=== PATIENT | female | born 1970 | race Caucasian/White ===

== ENCOUNTER 2017-11-16 17:14 | Emergency (ER) | payer OTHER ==
[~2017-11-16] VITALS: Ht 162.6 cm; Wt 113.4 kg
[~2017-11-16 17:14] MED LIST: AZO95 MG PO; BENADRYL25 M1 PO; DITROPAN XL5 MG PO; DOK100 MG PO; LEVAQUIN500 MG PO; MELATONIN3 MG PO; MILK OF MA400 MG/5 M PO; NICODERM CQ1 EAC1 TOP; PROZAC20 MG; SENOKOT8.6 MG PO; ULTRAM50 MG PO
[2017-11-16] MEDS ORDERED: IBUPROFEN 600 MG TAB PO STA (17:23)
--- NOTE | 2017-11-16 18:12 | Diagnostic Imaging Report ---
PROCEDURE:X-RAY RIGHT ANKLE, COMPLETE INDICATION:Ankle pain COMPARISON:None. FINDINGS: Normal mineralization. No acute displaced fracture or dislocation. Ankle mortise is preserved. No lytic or blastic lesion. No osteochondral lesion. Mild soft tissue swelling around the ankle. CONCLUSION: Mild soft tissue swelling around the ankle, without underlying bony abnormalities. Emery Maloney M.D. Dictated by: Emery Maloney M.D. on 11/16/2017 at 18:14 Electronically approved by: Emery Maloney M.D. on 11/16/2017 at 18:14
--- NOTE | 2017-11-16 18:13 | Diagnostic Imaging Report ---
PROCEDURE:X-RAY RIGHT FOOT, COMPLETE COMPARISON:None. INDICATIONS:FOOT TWISTED WHEN WALKING FINDINGS: Normal mineralization. No acute, displaced fracture or dislocation. Joint spaces are preserved. No lytic or blastic lesions. Soft tissues are unremarkable. CONCLUSION: No acute abnormalities. Emery Maloney M.D. Dictated by: Emery Maloney M.D. on 11/16/2017 at 18:15 Electronically approved by: Emery Maloney M.D. on 11/16/2017 at 18:15
[2017-11-16 21:20] VITALS: BP 141/81
== END 2017-11-16 21:30 | disposition home or self-care (01) ==
LOC: ER 17:14
DX: S93.431A Sprain of tibiofibular ligament of right ankle, initial encounter (principal); S93.621A Sprain of tarsometatarsal ligament of right foot, initial encounter; S80.212A Abrasion, left knee, initial encounter; W01.0XXA Fall on same level from slipping, tripping and stumbling without subsequent striking against object, initial encounter; Y92.009 Unspecified place in unspecified non-institutional (private) residence as the place of occurrence of the external cause; Z88.0 Allergy status to penicillin; Z87.442 Personal history of urinary calculi
CPT/HCPCS: 99284

== ENCOUNTER 2018-02-07 09:33 | Observation (INO) | payer OTHER ==
[~2018-02-07] VITALS: Ht 162.6 cm; Wt 113.4 kg
[2018-02-07] MEDS ORDERED: SODIUM CHLORIDE 0.9% 1000ML 1,000 ML IV STA (10:03)
[2018-02-07] MEDS ORDERED: DIPHENHYDRAMINE HCL INJ 50 MG/ML VIAL IV ONE (10:15)
[2018-02-07] MEDS ORDERED: METOCLOPRAMIDE HCL 10 MG/2ML VIAL IV ONE (10:15)
[2018-02-07 10:24] LABS: BASOPHILS # (AUTO) 0.1 (0.0-0.1); BASOPHILS % 0.7 % (0.0-1.0); EOSINOPHILS # (AUTO) 0.2 (0.0-0.4); EOSINOPHILS % 2.4 % (0.0-6.0); HEMATOCRIT 39.4 % (34.2-44.1); HEMOGLOBIN 13.5 g/dL (12.0-16.0); LYMPHOCYTES # (AUTO) 2.1 (1.0-3.2); LYMPHOCYTES % 21.8 % (18.0-39.1); MEAN CORPUSCULAR HEMOGLOBIN 32.1 pg (28-32); MEAN CORPUSCULAR HGB CONC 34.3 g/dL (31-35); MEAN CORPUSCULAR VOLUME 93.6 fL (81-99); MONOCYTES # (AUTO) 0.6 (0.2-0.8); MONOCYTES % 6.1 % (4.4-11.3); NEUTROPHILS # (AUTO) 6.5 (2.1-6.9); NEUTROPHILS % 68.8 % (38.7-80.0); PLATELET COUNT 247 x10e3/uL (140-360); RED BLOOD COUNT 4.21 x10e6/uL (3.6-5.1); RED CELL DISTRIBUTION WIDTH 13.2 % (11.7-14.4)
[2018-02-07 10:43] LABS: ALANINE AMINOTRANSFERASE 21 IU/L (0-55); ALBUMIN 3.7 g/dL (3.5-5.0); ALBUMIN/GLOBULIN RATIO 1.2 (0.8-2.0); ALKALINE PHOSPHATASE 89 IU/L (40-150); BLOOD UREA NITROGEN 13 mg/dL (7-26); BUN/CREATININE RATIO 18 (6-25); CALCIUM 8.8 mg/dL (8.4-10.2); CARBON DIOXIDE 22 mmol/L (22-29); CHLORIDE 101 mmol/L (98-107); CREATINE KINASE 140 IU/L (29-168); CREATININE, SERUM 0.72 mg/dL (0.57-1.11); EST GLOMERULAR FILTRATION RATE > 60 ML/MIN (60-); GLUCOSE 110 mg/dL (74-118); SODIUM 134 mmol/L (136-145)
--- NOTE | 2018-02-07 11:00 | Diagnostic Imaging Report ---
EXAMINATION: Head CT without contrast HISTORY: Severe forehead headache since the night before, dizziness COMPARISON: None. TECHNIQUE: Multidetector axial images were obtained without contrast from the foramen magnum to the vertex . The images were reconstructed using brain and bone algorithms. Thin section brain images were reformatted into coronal and sagittal planes. Image quality: Motion/streaking artifact limits the evaluation of the skull base and posterior cranial fossa. Dose modulation, iterative reconstruction, and/or weight based adjustment of the mA/kV was utilized to reduce the radiation dose to as low as reasonably achievable. FINDINGS: Parenchyma: 1. No abnormal densities. 2. No mass or hemorrhage. No CT evidence of acute territorial vascular insult. Extra-axial spaces:No abnormal density. No extra-axial fluid collections Brain volume: Normal for age. Ventricles: No hydrocephalus or displacement. Arteries: No density suggestive of thrombus. Dural sinuses: No abnormal density. Extra-axial spaces: No abnormal density. Foramen magnum: No mass, Chiari malformation, or basilar invagination. Sella: No obvious mass. Paranasal/mastoid sinuses: Imaged portions unremarkable. Skull/Scalp: No lytic or blastic lesions. No fractures. IMPRESSION: Normal head CT. Signed by: Dr. Rosa Lopes M.D. on 02/07/2018 10:57 AM
[2018-02-07] MEDS ORDERED: TRAMADOL HCL 50 MG TAB PO PRN (15:15)
[2018-02-07] MEDS: NICOTINE 21 MG/EA PATCH TOP SCH (15:30)
[2018-02-07] MEDS: ACETAMINOPHEN 325 MG TAB PO PRN (15:30)
[2018-02-07 15:32] LABS: CHOL/HDL RATIO 2.8 (3.0-3.6)
[2018-02-07] MEDS ORDERED: ENOXAPARIN SOD INJ 40 MG/0.4 ML SYR SC SCH (17:00)
[2018-02-07 18:14] LABS: INR 0.96
[2018-02-07 18:15] LABS: PARTIAL THROMBOPLASTIN TIME 32.2 seconds (23.8-35.5)
[2018-02-07] MEDS ORDERED: ALPRAZOLAM 1 MG TAB PO PRN (18:15)
--- NOTE | 2018-02-07 18:15 | Consultation ---
DATE OF CONSULTATION: February 07, 2018 NEUROLOGY CONSULTATION HISTORY OF PRESENT ILLNESS: Ms. Buenrostro is a 48-year-old right hand dominant woman with past medical history significant for hyperlipidemia, prior history of migraines, and tobacco use, admitted to [facility] on February 07, 2018, with symptoms suspicious for a transient ischemic attack or stroke. The patient awoke on the morning of admission with a severe headache. The pain was located across the forehead and did not radiate. Ms. Buenrostro describes the pain as squeezing and rates it a 10 out of 10. Associated with the headache were photophobia and a poor appetite. Despite having a severe headache, the patient arose from bed to prepare her morning cup of coffee. As she drank the coffee, the headache improved but did not resolve. Approximately 1 hour later, the patient began to experience dizziness which she describes as "everything moving in slow motion" with turning the head in either direction. At the same time, the patient noted impairment of balance, difficulty walking, and cognitive impairment. Ms. Buenrostro reports the headache was still present with the aforementioned symptoms but was less severe compared to the headache with which she awoke. Ms. Buenrostro does not report a visual field cut or other disturbance, hemiparesis, or hemihypesthesia associated with the above symptoms. She does report dysarthria with possible expressive aphasia. Concerned regarding her multiple symptoms, the patient proceeded to the emergency center at [facility] for further evaluation. Upon arrival in the emergency center, the patient was afebrile with a blood pressure of 127/72 mmHg and a pulse of 77 beats per minute. Her neurological examination was documented as being nonfocal. While in the emergency center, a CT of the brain without contrast was performed. This study did not show evidence of recent large territorial ischemia, hemorrhage, mass, or mass effect. Ms. Buenrostro received metoclopramide 10 mg intravenously once and diphenhydramine 25 mg intravenously once along with a liter of normal saline. Ms. Buenrostro reports her headache as well as the other symptoms seemed to significantly improve/resolve following administration of these medications. Ms. Buenrostro was then admitted to [facility] for further evaluation and treatment. REVIEW OF SYSTEMS: Dysarthria, possible aphasia, impairment of balance and gait, headache, photophobia, poor appetite, anxiety, and dizziness. Otherwise the 12 point review of systems is negative. PAST MEDICAL HISTORY: Hyperlipidemia, nephrolithiasis, anxiety disorder, history of migraines, anemia. PAST SURGICAL HISTORY: Ureteral stent placement and subsequent removal, lithotripsy, gastric sleeve, section times 2, uterine ablation, tonsillectomy. PAST HOSPITALIZATIONS: Surgeries/procedures as listed. FAMILY MEDICAL HISTORY: The patient's paternal and maternal grandparents are . Their medical histories are unknown. The patient's father is alive. He has hypertension, hyperlipidemia, coronary artery disease, and congestive heart failure. Ms. Buenrostro's mother is alive. She has hypertension as well as recurrent thyroid cancer--currently in remission/cured. The patient has 1 sister who is alive and healthy. Ms. Buenrostro has a son and a daughter, both of whom are living. Her son had a congenital patent foramen ovale which closed spontaneously at the age of 12 years. Her daughter has hearing loss in the left ear secondary to cholesteatoma. SOCIAL HISTORY: The patient is . She is a college graduate. 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 The patient does report current tobacco use. She has smoked 1 pack of cigarettes per day for the past 30 years. Ms. Buenrostro does not report current or prior alcohol or recreational drug use. HOME MEDICATIONS: Benadryl 25 mg by mouth at bedtime daily, Prozac 40 mg by mouth at bedtime daily, melatonin 10 mg by mouth at bedtime daily, Ditropan 5 mg by mouth three times daily as needed, phenazopyridine 95 mg by mouth daily, tramadol 50 mg by mouth every 4 hours as needed. ALLERGIES: PENICILLIN. NO KNOWN FOOD ALLERGIES. NO KNOWN ALLERGIES TO LATEX. NO KNOWN ALLERGIES TO IODINE OR OTHER CONTRAST MATERIALS. PHYSICAL EXAMINATION: VITAL SIGNS: Height 64 inches, weight 250 pounds, BMI 42.9 kg per meter squared. Blood pressure 143/77 mmHg. Pulse 102 beats per minute. Respiratory rate 20 breaths per minute. Oxygen saturation 98% on room air. GENERAL: The patient is awake and alert, does not appear distressed. HEENT: Normocephalic, atraumatic. Pupils are equal, round, and reactive to light. Moist mucous membranes. NECK: Supple. No appreciable thyromegaly. No appreciable carotid bruits. CARDIOVASCULAR: S1, S2, regular rate and rhythm. No murmurs, rubs, or gallops. RESPIRATORY: Clear to auscultation bilaterally. No wheezes, rhonchi, or rales. EXTREMITIES: The skin is warm and dry. No clubbing, cyanosis, or edema. The posterior tibial and dorsalis pedis pulses are 2+ and symmetric. SKIN: No rashes or lesions. NEUROLOGIC Memory/Attention: The patient is awake and alert, oriented to person, place, time, and situation. Cranial Nerves: Cranial nerve 1--Not tested. Cranial nerve 2, 3, 4, and 6--Pupils are equal and round, react briskly to light (from 6 mm to 4 mm). Extraocular movements intact. No nystagmus. Cranial nerve 5--Sensation to light touch and pinprick is intact in the bilateral V1 through V3 distributions. Strength of the temporalis and masseter muscles is within normal limits. Cranial nerve 7--The face is symmetric as are all facial movements. Strength is within normal limits. Cranial nerve 8--Hearing is intact to finger rub bilaterally. Cranial nerve 9, 10--The soft palate elevates equally and symmetrically. Cranial nerve 11--Normal strength of the bilateral sternocleidomastoid and trapezius muscles. Cranial nerve 12--The tongue protrudes midline and moves symmetrically from side to side. Strength: Bulk is normal. Strength is 5/5 in the bilateral deltoids, biceps, triceps, wrist flexors and extensors, finger flexors and extensors, intrinsic hand muscles, hip flexors, knee flexors and extensors, ankle dorsiflexion and plantarflexion, and intrinsic foot muscles. Tone is normal. DTRs: Deep tendon reflexes are 2+ and symmetric at the triceps, biceps, brachioradialis, patellas, and Achilles. Plantar responses are flexor bilaterally. Sensation: Sensation is intact to light touch and pinprick in both arms and both legs. Cerebellar: Dcdewe-idkw-tenjfn and heel-álvarez movements are intact without dysmetria or other impairment. Gait: Deferred. Speech: Spontaneous speech is normal without appreciable dysarthria or aphasia. Repetition is intact. Involuntary Movements: None. Pronator Drift: None. LABORATORY DATA: A complete metabolic panel is unremarkable. Cardiac enzymes are within normal limits. The qualitative beta HCG is negative. Total cholesterol 179, triglycerides 103, LDL cholesterol 95, HDL cholesterol 63. The CBC with differential and platelets reveals a white blood cell count of 9.50 with a normal differential. The hemoglobin and hematocrit are within normal limits. The platelet count is 247. DIAGNOSTIC STUDIES: CT of the brain without contrast January 24, 2018: On my review, there is no evidence of recent large territorial ischemia, hemorrhage, mass, or mass effect. Cerebral volumes are appropriate for age. ASSESSMENT AND PLAN: Ms. Buenrostro is a 48-year-old right hand dominant woman with past medical history significant for hyperlipidemia, prior migraines, and tobacco use, admitted to [facility] on February 07, 2018, for possible transient ischemic attack or stroke. At present, the patient's neurological examination is nonfocal. Her laboratory data and other diagnostic studies have been reviewed and are documented above. In my opinion, it is far more likely the patient experienced a migraine with ora rather than a transient ischemic attack or stroke. Ms. Buenrostro will undergo an MRI of the brain without contrast to exclude the diagnosis of stroke. It is possible there may be findings on the MRI of the brain without contrast to suggest a history of migraines. At present, the patient does not report a headache, photophobia, poor appetite, dizziness, impairment of balance or gait, or any other symptoms she experienced earlier in the day. Therefore, no medications will be prescribed for further treatment. Lastly, tobacco cessation counseling was provided to the patient. Thank you for this consultation. I will continue to follow the patient while she remains in the hospital. Time spent: 70 minutes. Job#: [id number] EV CHANTAL
[2018-02-07] MEDS ORDERED: PROMETHAZINE 25MG/ NS 50ML (IV) IV ONE (18:30)
[2018-02-07] MEDS ORDERED: VALPROATE SOD INJ 500 MG in SODIUM CHLORIDE 0.9% 100 ML 100 ML IV ONE (18:30)
[2018-02-07] MEDS ORDERED: METHYLPREDNISOLONE SOD SUCC 125 MG/2ML VIAL IV ONE (18:30)
[2018-02-07 20:10] VITALS: BP 128/60
[2018-02-07] MEDS ORDERED: SODIUM CHLORIDE 0.9% 250ML 250 ML ONE (20:15)
[2018-02-07 20:20] VITALS: BP 128/60
[2018-02-07 20:45] VITALS: BP 128/60
[2018-02-07] MEDS ORDERED: MELATONIN 5 MG TABLET PO SCH (21:00)
[2018-02-07] MEDS: METOPROLOL TARTRATE 25 MG TAB PO SCH (21:00)
[2018-02-07] MEDS ORDERED: OXYBUTYNIN CHLORIDE XL 5 MG TAB PO SCH (21:00)
[2018-02-07] MEDS ORDERED: DIPHENHYDRAMINE HCL 25 MG CAP PO SCH (21:00)
[2018-02-07] MEDS ORDERED: FLUOXETINE HCL 20 MG CAP PO SCH (21:00)
[2018-02-08] VITALS: BP 119/58
[2018-02-08] MEDS ORDERED: PROMETHAZINE 25MG/ NS 50ML (IV) IV ONE (01:00)
[2018-02-08] MEDS ORDERED: VALPROATE SOD INJ 500 MG in SODIUM CHLORIDE 0.9% 100 ML 100 ML IV ONE ×2 (01:00→10:30)
[2018-02-08] MEDS ORDERED: METHYLPREDNISOLONE SOD SUCC 125 MG/2ML VIAL IV ONE (01:00)
[2018-02-08 04:00] VITALS: BP 113/55
[2018-02-08] MEDS ORDERED: LOPRESSOR25 MG PO (07:27)
[2018-02-08] MEDS ORDERED: PRAVASTATIN SOD40 MG PEG (07:27)
[2018-02-08] MEDS ORDERED: NICODERM CQ1 EAC2 TOP (07:27)
[2018-02-08] MEDS ORDERED: ASPIRIN325 MG PO (07:27)
[2018-02-08 08:30] VITALS: BP 113/55
--- NOTE | 2018-02-08 08:38 | Discharge Summary ---
PRINCIPAL DIAGNOSES 1. Transient ischemic attack. 2. Dizziness. 3. Migraine headaches. 4. Hyperlipidemia. 5. Morbid obesity. 6. Anxiety disorder. SECONDARY DIAGNOSES 1. Cigarette use. 2. Irritable bowel syndrome. CHIEF COMPLAINT: Difficulty speaking and dizziness. HISTORY OF PRESENT ILLNESS: This is a 48-year-old woman with dizziness and difficulty speaking. Please refer to the H and P for further details. HOSPITAL COURSE: The patient had dizziness and headache. She had difficulty speaking. All these symptoms resolved. Possibly had a TIA. MRI is still pending. If MRI is negative, she will be discharged home. She has been evaluated by neurologist, Dr. Redman. Will follow up with Dr. Redman outpatient. DISCHARGE MEDICATIONS: Per electronic medical record and include aspirin, statin and beta jaskaran. FOLLOWUP 1. Primary care doctor in [address] Redman in 2 weeks. MAGDA FLORES MD Job#: [id number] [place]
[2018-02-08] MEDS: ACETAMINOPHEN 325 MG TAB PO PRN (08:39)
[2018-02-08] MEDS: NICOTINE 21 MG/EA PATCH TOP SCH (08:41)
[2018-02-08] MEDS: METOPROLOL TARTRATE 25 MG TAB PO SCH (08:42)
[2018-02-08] MEDS ORDERED: ASPIRIN 325 MG TAB PO SCH (09:00)
--- NOTE | 2018-02-08 09:24 | History and Physical ---
PRIMARY CARE PHYSICIAN: Dr. Damon CHIEF COMPLAINT: Dizziness and difficulty speaking. HISTORY OF PRESENT ILLNESS: This is a 48-year-old woman with a history of stroke, now developing dizziness and difficulty speaking. She comes into the hospital for evaluation. Denies any chest pain. The patient also admits to some headache at home. PAST MEDICAL HISTORY: Hypertension, hyperlipidemia, anxiety disorder, nephrolithiasis, migraine headaches and anemia. PAST SURGICAL HISTORY: Ureteral stent placement and subsequent removal, lithotripsy, gastric sleeve, times 2, uterine ablation, and tonsillectomy. ALLERGIES: PER ELECTRONIC MEDICAL RECORD. FAMILY/SOCIAL HISTORY: Patient has children. She denies any alcohol, illicits or cigarettes. MEDICATIONS: Per electronic medical record. REVIEW OF SYSTEMS: Denies any chest pain, shortness of breath, fever, chills, sweats, nausea, vomiting, diarrhea, vision changes. PHYSICAL EXAMINATION VITAL SIGNS: Have been reviewed. GENERAL: A tired-appearing woman resting in bed. HEENT: Anicteric. Pupils are responsive to light. No oral lesions. CARDIOVASCULAR: Normal S1 and S2. LUNGS: Moderate breath sounds. ABDOMEN: Soft, nontender. EXTREMITIES: No edema or calf tenderness. NEUROLOGIC: Alert, oriented times 3, moving all extremities. No visual field deficits. Motor strength is 5/5 in all extremities. LABS: Reviewed. MEDICATIONS: Reviewed. ASSESSMENT: This is a 48-year-old woman. 1. Transient ischemic attack. 2. Dizziness. 3. Migraine headaches. 4. Hyperlipidemia. 5. Cigarette use. 6. Anxiety disorder. 7. Irritable bowel syndrome. 8. Hypertension. 9. Morbid obesity. Body mass index is 42.9. PLAN 1. MRI is still pending. 2. Continue aspirin. 3. Add statin. 4. Add beta jaskaran. 5. Physical therapy consultation. 6. If MRI is negative, the patient has already been evaluated by neurology, the patient can be discharged home with antihypertensive medication, anticoagulation medication, and aspirin and follow up with primary care doctor and neurologist as outpatient. Job#: [id number]
--- NOTE | 2018-02-08 09:46 | Diagnostic Imaging Report ---
EXAMINATION: MRI of the brain without contrast. HISTORY: Globe while headache, sensitivity to light, migraine with aura versus a stroke. COMPARISON: Head CT on 02/07/2018 TECHNIQUE: Sagittal T2; axial DWI, T2, FLAIR, T1-IR, T2 gradient echo; coronal FLAIR. IMAGE QUALITY: Adequate. FINDINGS: Parenchyma: 1. A a few (about 5) bilateral frontal white matter T12 and FLAIR hyperintense foci, most likely migraine related or secondary to minimal chronic microvascular ischemic changes, within normal limits for patient's age. Otherwise no areas of abnormal signal intensity in the brain parenchyma. 2. No mass, hemorrhage, acute or chronic infarcts. Skull: Unremarkable. Vessels: Expected flow voids present in the major arteries and dural sinuses. Extra-axial spaces: No abnormal signal intensity or mass effect. Brain volume: Within normal limits for age. Ventricles: No hydrocephalus or displacement. Foramen magnum: Unremarkable. Sella: Unremarkable. Paranasal / mastoid sinuses: No significant inflammatory disease. IMPRESSION: 1. No acute or chronic infarcts. 2. Minimal white matter hyperintense foci as detailed above. Signed by: Dr. Rosa Lopes M.D. on 02/08/2018 9:43 AM
[2018-02-08] MEDS ORDERED: PROMETHAZINE 25MG/ NS 50ML (IV) IV NR (10:15)
[2018-02-08] MEDS ORDERED: METHYLPREDNISOLONE SOD SUCC 125 MG/2ML VIAL IV NR (10:15)
--- OUTSIDE RECORDS SUMMARY | 2018-03-22 03:44 | XMS REPORT ---
Author Author [facility] Address Unknown Phone Unavailable Care Team Providers Care Ceramic Mold Designer Name Role Phone MAGDA FLORES Unavailable Unavailable BARNEY WRIGHT Unavailable Unavailable Problems This patient has no known problems. Allergies, Adverse Reactions, Alerts This patient has no known allergies or adverse reactions. Medications This patient has no known medications. Results Test Description Test Time Test Comments Text Results Atomic Results Result Comments MRI BRAIN WO 2018-02-08 09:39:00 [facility] [address] [place] [address] Patient Name: ZACARIAS JAIME MR #: [id number] : 1970 Age/Sex: 48/F Req #: [id number] Adm Physician: MAGDA FLORES MD Ordered by: MITUL ONEILL M.D. Report #: [id number] Location: [facility] Room/Bed: [facility] Procedure: [id number] MRI/MRI BRAIN WO Exam Date : Exam Time: REPORT STATUS: Signed EXAMINATION: MRI of the brain without contrast. HISTORY: Globe while headache, sensitivity to light, migraine with aura versus a stroke. COMPARISON: Head CT on 02/07/2018 TECHNIQUE: Sagittal T2; axial DWI, T2, FLAIR , T1-IR, T2 gradient echo; coronal FLAIR. IMAGE QUALITY: Adequate. FINDINGS: Parenchyma: 1. A a few (about 5) bilateral frontal white matter T12 and FLAIR hyperintense foci, most likely migraine related or secondary to minimal chronic microvascular ischemic changes, within normal limits for patient's age. Otherwise no areas of abnormal signal intensity in the brain parenchyma. 2. No mass, hemorrhage, acute or chronic infarcts. Skull: Unremarkable. Vessels: Expected flow voids present in the major arteries and dural sinuses. Extra-axial spaces: No abnormal signal intensity or mass effect. Brain volume: Within normal limits for age. Ventricles: No hydrocephalus or displacement. Foramen magnum: Unremarkable. Sella: Unremarkable. Paranasal / mastoid sinuses: No significant inflammatory disease. IMPRESSION: 1. No acute or chronic infarcts. 2. Minimal white matter hyperintense foci as detailed above. Signed by: Dr. Kareem Lopes M.D. on 02/08/2018 9:43 AM Dictated By: KAREEM LOPES MD 2 Transcribed By: KORIN on 02/08/18942 COPY TO: MITUL ONEILL MD CT BRAIN WO 2018-02-07 10:53:00 [place] [address] Patient Name: ZACARIAS JAIME MR #: [id number] : 1970 Age/Sex: 48/F Req #: [id number] Adm Physician: Ordered by: REGINA SPIVEY MD Report #: [id number] Location: Room/Bed: Procedure: [id number] CT/CT BRAIN WO Exam Date: 02/07/18 Exam Time: 1015 REPORT STATUS: Signed EXAMINATION: Head CT without contrast HISTORY: Severe forehead headache since the night before, dizziness COMPARISON: None. TECHNIQUE: Multidetector axial images were obtained without contrast from the foramen magnum to the vertex . The images were reconstructed using brain and bone algorithms. Thin section brain images were reformatted into coronal and sagittal planes. Image quality: Motion/streaking artifact limits the evaluation of the skull base and posterior cranial fossa. Dose modulation, iterative reconstruction, and/or weight based adjustment of the mA/kV was utilized to reduce the radiation dose to as low as reasonably achievable. FINDINGS: Parenchyma: 1. No abnormal densities. 2. No mass or hemorrhage. No CT evidence of acute territorial vascular insult. Extra-axial spaces:No abnormal density. No extra-axial fluid collections Brain volume: Normal for age. Ventricles: No hydrocephalus or displacement. Arteries: No density suggestive of thrombus. Dural sinuses: No abnormal density. Extra-axial spaces: No abnormal density. Foramen magnum: No mass, Chiari malformation, or basilar invagination. Sella: No obvious mass. Paranasal/mastoid sinuses: Imaged portions unremarkable. Skull/Scalp: No lytic or blastic lesions. No fractures. IMPRESSION: Normal head CT. Signed by: Dr. Kareem Lopes M.D. on 02/07/2018 10:57 AM Dictated By: KAREEM LOPES MD 56 Transcribed By: KORIN on 02/07/181056 COPY TO: REGINA SPIVEY MD ANKLE 3 + VIEWS RIGHT [place] [address] Patient Name: ZACARIAS JAIME MR #: [id number] : 1970 Age/Sex: 47/F Req #: [id number] Adm Physician: Ordered by: KAPIL ALFARO COMMUTATOR PRESSER Report #: [id number] Location: Room/Bed: Procedure: [id number] DX/ANKLE 3 + VIEWS RIGHT Exam Date: Exam Time: REPORT STATUS: Signed PROCEDURE: X-RAY RIGHT ANKLE , COMPLETE INDICATION: Ankle pain COMPARISON: None. FINDINGS: Normal mineralization. No acute displaced fracture or dislocation. Ankle mortise is preserved. No lytic or blastic lesion. No osteochondral lesion. Mild soft tissue swelling around the ankle. CONCLUSION: Mild soft tissue swelling around the ankle, without underlying bony abnormalities. Brayden Maloney M.D. Dictated by: Brayden Maloney M.D. on 11/16/2017 at 18:14 Electronically approved by: Brayden Maloney M.D. on 11/16/2017 at 18:14 Dictated By: BRAYDEN MALONEY MD 13 Transcribed By: J[place] on 11/16/171813 COPY TO: KAPIL ALFARO COMMUTATOR PRESSER FOOT RIGHT COMPLETE [place] [address] Patient Name: ZACARIAS JAIME MR #: [id number] : 1970 Age/Sex: 47/F Req #: [id number] Adm Physician: Ordered by: KAPIL ALFARO NP Report #: [id number] Location: ER Room/Bed: Procedure: [id number] DX/FOOT RIGHT COMPLETE Exam Date: 11/16/17 Exam Time: 1710 REPORT STATUS: Signed PROCEDURE: X-RAY RIGHT FOOT, COMPLETE COMPARISON: None. INDICATIONS: FOOT TWISTED WHEN WALKING FINDINGS: Normal mineralization. No acute, displaced fracture or dislocation. Joint spaces are preserved. No lytic or blastic lesions. Soft tissues are unremarkable. CONCLUSION: No acute abnormalities. Brayden Maloney M.D. Dictated by: Brayden Maloney M.D. on 11/16/2017 at 18:15 Electronically approved by: Brayden Maloney M.D. on 11/16/2017 at 18:15 Dictated By: BRAYDEN MALONEY MD 14 Transcribed By: JAMAICA on 11/16/171814 COPY TO: KAPIL ALFARO NP
--- OUTSIDE RECORDS SUMMARY | 2018-03-22 03:44 | XMS REPORT | Continuity of Care Document ---
Author Author [facility] Organization [facility] Address [address] [place] [address] Phone Unavailable Care Team Providers Care Cardiac Rehabilitation Specialist Name Role Phone NO, PCP PCP Unavailable Insurance Providers Guarantor [employer] Address [address] [place] [address] Email [email or web address] Payer [facility] Policy Number [id number] Subscriber's Name Cara Jaime Relationship 18 Self / Same As Patient Effective Date 16 Advance Directives Directive Response Recorded Date/Time Does the patient have an advance directive? No 06/09/16 3:00am If yes, is advance directive on file with [facility]? No 05/27/16 3:09pm If not on file with [facility] will patient provide a copy? No 05/27/16 3:09pm Do you have a Directive to Physician? No 11/16/17 6:50pm Do you have a Medical Power of Squirt Machine Operator? No 11/16/17 6:50pm Do you have an out of hospital Do Not Resuscitate Order? No 11/16/17 6:50pm Do you have any special needs we should be aware of? No 11/16/17 6:50pm Do you have a support person here with you today? No 11/16/17 6:50pm Did patient receive Notice of Privacy Practices? Yes 11/16/17 6:50pm Did patient receive patient rights and responsibilities? Yes 11/16/17 6:50pm Problems Medical Problem Onset Date Status Chest pain Unknown UTI (urinary tract infection) Unknown Ureteral stone Unknown Medications Current Home Medications Medication Dose Units Route Directions Days Qty Instructions Start Date Diphenhydramine Hcl (Benadryl) 25 Mg Capsule 25 Mg Oral Bedtime Fluoxetine Hcl (Prozac) 20 Mg Capsule 40 Mg Bedtime 30 Tab Melatonin 3 Mg Tablet 10 Mg Oral Bedtime Oxybutynin Chloride (Ditropan Xl) 5 Mg Tab.er.24 5 Mg Oral Three Times A Day as needed for Bladder Spasms 30 Tab Phenazopyridine Hcl (Azo) 95 Mg Tablet 1 Tab Oral Daily Tramadol Hcl (Ultram) 50 Mg Tablet 50 Mg Oral Every 4 Hours as needed for Pain Past Home Medications Medication Directions Ordered Status Docusate Sodium (Dok) 100 Mg Tablet, 100 Mg Oral Every 12 Hours 05/31/16 Discontinued Levofloxacin (Levaquin) 500 Mg Tablet, 500 Mg Oral Daily Discontinued Magnesium Hydroxide (Milk Of Magnesia) 400 Mg/5 Ml Oral.susp, 30 Ml Oral Daily 05/31/16 Discontinued Nicotine (Nicoderm Cq) 1 Each Patch.td24, 14 Mg Topically Daily@17 05/31/16 Discontinued Sennosides (Senokot) 8.6 Mg Tablet, 8.6 Mg Oral Every 12 Hours 05/31/16 Discontinued Social History Social History Problem Response Recorded Date/Time Onset Date Status Hx Psychiatric Problems No 06/09/2016 3:00am Not Applicable Not Applicable Hx Eating Disorder No 06/09/2016 3:00am Not Applicable Not Applicable Hx Substance Use Disorder No 06/09/2016 3:00am Not Applicable Not Applicable Hx Depression No 06/09/2016 3:00am Not Applicable Not Applicable Hx Alcohol Use No 06/09/2016 3:00am Not Applicable Not Applicable Hx Substance Use Treatment No 06/09/2016 3:00am Not Applicable Not Applicable Hx Physical Abuse No 06/09/2016 3:00am Not Applicable Not Applicable Smoking Status Start Date Stop Date Current every day smoker Hospital Discharge Instructions No hospital discharge instruction information available. Plan of Care Discharge Date 11/16/17 9:30pm Disposition HOME, SELF-CARE Condition at Discharge Stable Instructions/Education Provided Sprains Crutch Use RICE Therapy Sprains - Ankle Forms Provided Work/School Excuse Prescriptions See Medication Section Referrals MONA DESHPANDE (NON STAFF) Order Date: Call for an appointment Address: [place] [address] ANA TODD MD Order Date: Call for an appointment Address: [address] [facility] [address] [place] [address] RICHY CHOU MD Address: [address] [facility] [address] [place] [address] Additional Instructions/Education Keep your injured extremity elevated above your heart, use ice packs for 15 to 20 minutes every 1-2 hours. This will help decrease pain and swelling. Take Motrin 400mg to 600mg every 4-6 hours as needed for pain. If prescribed pain medication on discharge, take the pain medication as prescribed and adhere to the warnings given for pain medication such as no swimming, driving operating heavy machinery, drinking or mixing with other medications that can interact with the narcotic. Follow up with the Orthopedic referral physician listed, call next business day to schedule your follow-up appointment. Return to the Emergency Department for any shortness of breath, increased pain injured extremity, discoloration of extremity, decreased circulation of extremity, or any new concerns. Functional Status No functional status information available. Allergies, Adverse Reactions, Alerts Allergen Type Severity Reaction Status Last Updated penicillin Allergy Intermediate Hives, gum ache Active 05/27/16 Immunizations No immunization information available. Vital Signs Acute Vital Signs Vital Response Date/Time Temperature (Fahrenheit) 98.6 degrees F (97.6 - 99.5) 11/16/2017 9:20pm Pulse Pulse Rate (adult) 80 bpm (60 - 90) 11/16/2017 9:20pm Respiratory Rate 18 bpm (12 - 24) 11/16/2017 9:20pm Blood Pressure 141/81 mm Hg 11/16/2017 9:20pm Height 5 ft 4 in 11/16/2017 5:21pm Weight 250 lb 11/16/2017 5:21pm Body Mass Index 42.9 kg/m^2 11/16/2017 5:21pm Results No relevant diagnostic test, laboratory data and/or discharge summary information available. Procedures No procedure information available. Encounters Encounter Location Arrival/Admit Date Discharge/Depart Date Attending Provider Departed Emergency Room [facility] 11/16/17 5:14pm 9:30pm BARNEY WRIGHT MD Departed Emergency Room [facility] 04/03/17 6:31pm 7:35pm LEANNA SAHU MD
== END 2018-02-08 12:30 | disposition home or self-care (01) ==
LOC: ER 09:33 → ERHOLD 11:22 → INTOOBSV 11:22 → MED/SURG2 13:26
PROVIDERS: ADMIT Internal Medicine; ATTEND Internal Medicine
DX: G45.9 Transient cerebral ischemic attack, unspecified (principal); R42 Dizziness and giddiness; G43.909 Migraine, unspecified, not intractable, without status migrainosus; E78.5 Hyperlipidemia, unspecified; Z72.0 Tobacco use; F41.9 Anxiety disorder, unspecified; K58.9 Irritable bowel syndrome, unspecified; I10 Essential (primary) hypertension; E66.01 Morbid (severe) obesity due to excess calories; Z68.41 Body mass index [BMI] 40.0-44.9, adult; Z88.0 Allergy status to penicillin
CPT/HCPCS: 36415; 70450; 70551; 80053; 80061; 82550; 82553; 84484; 84702; 85025; 85610; 85730; 93005; 99284; G0378 ×2; J1200; J1650; J2550 ×2; J2765; J2930 ×2; J7030; J7050

== ENCOUNTER 2019-08-28 16:02 | Inpatient (IN) | payer OTHER ==
[~2019-08-28] VITALS: Ht 162.6 cm; Wt 104.8 kg
[~2019-08-28 16:02] MED LIST changes: +ASPIRIN325 MG PO; +LOPRESSOR25 MG PO; +NICODERM CQ1 EAC2 TOP; +PRAVASTATIN SOD40 MG PEG
--- OUTSIDE RECORDS SUMMARY | 2019-08-28 16:05 | XMS REPORT | Summary of Care ---
Author Author [facility] Organization [facility] Address Unknown Phone Unavailable Care Team Providers Care Mathematics Improvement Teacher Name Role Phone Pedro Saez MD PCP Reason for Visit * Reason Comments Follow Up Encounter Details Care Team Description Date Type Department Jesus Mayberry MD [address] [place], [place] [id number] Follow Up 03/19/2019 Office Visit [facility] Orthopedic Surgery [address] [facility], [place] [address] Allergies Comments Active Allergy Reactions Severity Noted Date Codeine 03/22/2017 Penicillins 03/22/2017 documented as of this encounter (statuses as of 03/19/2019) Medications End Date Status Medication Sig Dispensed Refills Start Date Active fluoxetine (PROZAC) 20 MG TAKE 2 2 capsule CAPSULES BY 7 MOUTH EVERY DAY Active ibuprofen (MOTRIN) 200 mg Take 200 mg 0 tablet by mouth every 6 hours as needed for Pain. Active ketorolac (TORADOL) 10 MG Take 1 Tab by 12 Tab 0 tablet mouth every 4 7 hours as needed for Pain. No more than 3 days Active cyclobenzaprine TAKE 1 TABLET 60 Tab 3 (FLEXERIL) 10 MG tablet BY MOUTH 7 TWICE A DAY NEEDED FOR MUSCLE SPASMS Active meloxicam (MOBIC) 7.5 MG TAKE 1 TABLET 30 Tab 1 tablet BY MOUTH 8 EVERY DAY Active alprazolam (XANAX) 0.5 MG TAKE ONE HALF 0 tablet TABLETS BY 9 MOUTH EVERY DAY FOR PANIC ONLY. CAREFUL DRIVING. -- NEEDED Active atorvastatin (LIPITOR) 20 TAKE 1 TABLET 0 MG tablet BY MOUTH 9 EVERY DAY Active oxcarbazepine (TRILEPTAL) TAKE TWO TO 0 600 MG tablet THREE TABLETS 9 BY MOUTH EVERY NIGHT AT BEDTIME. Active oxybutynin (DITROPAN XL) Bedtime 0 5 MG CR tablet Status Hospital, Clinic, or Ordered Dose Route Frequency Start End Date Other Facility Date Administered Medication Ended betamethasone IX ONCE 03/19/20 acetate-betamethasone 19 9 sodium phosphate (CELESTONE) 6 (3-3) MG/ML, lidocaine 1% (10 mg/mL)Indications: Intractable right heel pain documented as of this encounter (statuses as of 03/19/2019) Active Problems No known active problemsdocumented as of this encounter (statuses as of 03/19/2019) Social History Date Tobacco Use Types Packs/Day Years Used Current Every Day Smoker 1 30 Smokeless Tobacco: Never Used Comments: 25-30 years Drinks/Week oz/Week Comments Alcohol Use Rarely Yes Sex Assigned at Date Recorded Not on file Industry Job Start Date Occupation Not on file Not on file Not on file Travel End Travel History Travel Start No recent travel history available. documented as of this encounter Last Filed Vital Signs Not on filedocumented in this encounter Progress Notes * Jesus Mayberry MD - 03/19/2019 3:00 PM CDT [facility] Orthopedic Surgery New Patient Clinic Visit CHIEF COMPLAINT: Chief Complaint Patient presents with Follow Up HISTORY OF PRESENT ILLNESS: 49 yo F who presents with right heel pain. Patient reports his has been going on for at least 2 years. Has been treated for plantar fasciitis by Mitch rodriguez ry first with two short leg casts (which the patient walked in), then a CAM walk er which was too heavy, then at least 1 CSI which did not help at all. Has also tried buying several different orthotics and orthopedic shoes on the Internet wh ich have not helped. Does some stretching at home but does not brace her foot ag ainst a wall or other structure. ALLERGIES: Allergies Allergen Reactions Codeine Penicillins CURRENT MEDICATIONS: Current Outpatient Medications: alprazolam (XANAX) 0.5 MG tablet, TAKE ONE HALF TABLETS BY MOUTH EVERY DAY FOR PANIC ONLY. CAREFUL DRIVING. -- NEEDED, Disp: , Rfl: 0 atorvastatin (LIPITOR) 20 MG tablet, TAKE 1 TABLET BY MOUTH EVERY DAY, Disp : , Rfl: 0 cyclobenzaprine (FLEXERIL) 10 MG tablet, TAKE 1 TABLET BY MOUTH TWICE A DAY NEEDED FOR MUSCLE SPASMS, Disp: 60 Tab, Rfl: 3 fluoxetine (PROZAC) 20 MG capsule, TAKE 2 CAPSULES BY MOUTH EVERY DAY, Disp : , Rfl: 2 ibuprofen (MOTRIN) 200 mg tablet, Take 200 mg by mouth every 6 hours as nee ded for Pain., Disp: , Rfl: ketorolac (TORADOL) 10 MG tablet, Take 1 Tab by mouth every 4 hours as need ed for Pain. No more than 3 days, Disp: 12 Tab, Rfl: 0 meloxicam (MOBIC) 7.5 MG tablet, TAKE 1 TABLET BY MOUTH EVERY DAY, Disp: 30 Tab, Rfl: 1 oxcarbazepine (TRILEPTAL) 600 MG tablet, TAKE TWO TO THREE TABLETS BY MOUTH EVERY NIGHT AT BEDTIME., Disp: , Rfl: 0 oxybutynin (DITROPAN XL) 5 MG CR tablet, Bedtime, Disp: , Rfl: ACTIVE PROBLEMS: There is no problem list on file for this patient. PAST MEDICAL HISTORY: Past Medical History: Diagnosis Date Anxiety History of anemia History of kidney stones Migraine headache Seasonal allergic rhinitis PAST SURGICAL HISTORY: Past Surgical History: Procedure Laterality Date HX SECTION x2 HX OTHER SURGICAL HISTORY 2012 Gastric sleeve HX RHINOPLASTY Right HX TONSILLECTOMY FAMILY HISTORY: Family History Problem Relation Name Age of Onset Thyroid Cancer Mother Thyroid Disease Mother Colon Cancer Mother Ovarian Cancer Mother Other (Optical stroke) Mother Anesth Problems Father Heart Disease Father Heart Attack Father High Cholesterol Father SOCIAL HISTORY: Social History Socioeconomic History Marital status: Spouse name: Not on file Number of children: Not on file Years of education: Not on file Highest education level: Not on file Occupational History Not on file Social Needs Financial resource strain: Not on file Food insecurity: Worry: Not on file Inability: Not on file Transportation needs: Medical: Not on file Non-medical: Not on file Tobacco Use Smoking status: Current Every Day Smoker Packs/day: 1.00 Years: 30.00 Pack years: 30 Smokeless tobacco: Never Used Tobacco comment: 25-30 years Substance and Sexual Activity Alcohol use: Yes Comment: Rarely Drug use: Not on file Sexual activity: Not on file Lifestyle Physical activity: Days per week: Not on file Minutes per session: Not on file Stress: Not on file Relationships Social connections: Talks on phone: Not on file Gets together: Not on file Attends jew service: Not on file Active member of club or organization: Not on file Attends meetings of clubs or organizations: Not on file Relationship status: Not on file Intimate partner violence: Fear of current or ex partner: Not on file Emotionally abused: Not on file Physically abused: Not on file Forced sexual activity: Not on file Other Topics Concerns: Not on file Social History Narrative Not on file REVIEW OF SYSTEMS: General: denies fever, chills, night sweats, nausea, or vomiting Neurologic: denies numbness, tingling, weakness, or problems with balance VITAL SIGNS: PHYSICAL EXAM: Constitutional: awake, alert, follows commands, and in no acute distress Skin: intact without abrasions, rashes, or draining sinuses Heent: EOMI, PERRL Neck: supple Chest: clear, COR: RRR Abd: Nontender, not distended Neurologic: normal gait, normal strength and sensation in extremities Musculoskeletal: Right lower extremity: Inspection: skin intact, no swelling, mild valgus of right heel Palpation: +TTP over medial and lateral heel Motor: 5/5 EHL/FHL/TA/GS Sensation: SILT in the saphenous/sural/deep peroneal/superficial peroneal/tibial distributions Vascular: 2+ DP and PT pulses, brisk capillary refill to all toes ROM: ankle dorsiflexion to 15 degrees with knee extended and 25 degrees with kne e flexed (+Silfverskiold), plantarflexion to 40 degrees IMAGING / LABORATORY FINDINGS: X-rays of the right calcaneus with no fracture or obvious degenerative changes, Meary's angle of 10 degrees PROCEDURES: None COUNSELING / PATIENT EDUCATION: Plan of care ASSESSMENT: 1. Intractable right heel pain 49 yo F with 2 years of right heel pain, has been treated for plantar fasciitis PLAN: Treatment Plan: She returns today with the MRI scan and this does appear to demonstrate chronic plantar fasciitis inflammation. She's been having pain for quite some time she's been under the care of a podiat rist for over a year she's gotten injections etc. She also has tried some stretc hazel recently without much effect. She's requested a cortisone injection today. PROCEDURE NOTE - Plantar fascia CSI We have discussed the pros and cons of a steroid injection. We have discussed th e possiblity of fat atrophy. The patient understands these issues and requested the injection. 1 cc (6mg) of celestone and 2 cc of 2%Xylocaine without Epi was injected into th e RIGHT Subfascial region of the plantar fascia just distal to the calcaneal att achment. There was a good effect from the local anesthetic and there were no immediate co mplications. We discussed the usual timing on the cortisone. The full effect may take 2 weeks and there may be a brief increase in pain after the xylocaine wears off. I have recommended to the patient to continue stretching. We've also discussed the possibility of a plantar fascial release. Given we have just administered a cortisone injection I would like to hold off on that for a few weeks. Hopefully she will get some relief and if not we could proceed with t he plantar fascia and distal tarsal tunnel release on the right side. The surger y will be done as an outpatient. We discussing in an out nature of that. The pat ient does not appear to require a block and we have discussed the anesthesia. We have discussed the surgical procedure. The patient was allowed time to ask ques tions and seems comfortable with the plan. We have discussed the expected outcom es and the possible complications. We have also discussed the rehabilitation. We have discussed non-operative treatment as well. documented in this encounter Plan of Treatment Health Maintenance Due Date Last Done Comments MAMMOGRAM ANNUAL 1970 TETANUS SHOT (ADULT) 1985 BMI FOLLOW UP PLAN 01/08/1988 HIV SCREENING 01/08/1988 CERVICAL CANCER SCREENING 1991 3 YEAR FOLLOW UP FLU VACCINE > 6 MONTHS 01/17/2019 documented as of this encounter Results Not on filedocumented in this encounter Visit Diagnoses Diagnosis Intractable right heel pain - Primary Pain in limb documented in this encounter Administered Medications Action Date Dose Rate Site Medication Order MAR Action 03/19/2019 3:25 PM CDT Right Heel betamethasone acetate-betamethasone Given by sodium phosphate (CELESTONE) 6 (3-3) MG/ML, lidocaine 1% (10 mg/mL) Intra-articular, ONCE, 1 dose, 03/19/19 at 1530 documented in this encounter Insurance Type Payer Benefit Subscriber ID Effective Phone Address Plan / Dates Group [facility] xxxxxxxxxx 2016-P [facility] [id number] [place] [address] documented as of this encounter
--- OUTSIDE RECORDS SUMMARY | 2019-08-28 16:05 | XMS REPORT | Summary of Care ---
Author Author [facility] Organization [facility] Address Unknown Phone Unavailable Care Team Providers Care Spring Winder Name Role Phone Pedro Saez MD PCP Reason for Referral * Radiology Services (Routine) Referred By Contact Referred To Contact Status Reason Specialty Diagnoses / [place] [address] [place] [address] [address] [place] [address] Mr Imaging [address] [facility] [address] [place] [phone] Pending Radiology Diagnoses Right ankle pain, unspecified chronicity P rocedures MRI ANKLE RIGHT WO CONTRAST Reason for Visit * Reason Comments Foot Injury Encounter Details Care Team Description Date Type Department Jesus Mayberry MD [address] [place], [place] [id number] Foot Injury 03/11/[address] [facility] Orthopedic Surgery [address] [place] [address]. [address], [place] [address] Allergies Comments Active Allergy Reactions Severity Noted Date Codeine 03/22/2017 Penicillins 03/22/2017 documented as of this encounter (statuses as of 03/11/2019) Medications End Date Status Medication Sig Dispensed [...] XL) Bedtime 0 5 MG CR tablet documented as of this encounter (statuses as of 03/11/2019) Active Problems No known active problemsdocumented as of this encounter (statuses as of 03/11/2019) Social History Date Tobacco Use Types Packs/Day [...] of this encounter Last Filed Vital Signs Reading Time Taken Comments Vital Sign 147/79 03/11/2019 10:01 AM CDT Blood Pressure 78 03/11/2019 10:01 AM CDT Pulse - - Temperature - - Respiratory Rate - - Oxygen Saturation - - Inhaled Oxygen Concentration - - Weight - - Height - - Body Mass Index documented in this encounter Progress Notes * Flavia Feng MD - 03/11/2019 9:40 AM CDT [facility] Orthopedic Surgery New Patient Clinic Visit ASSESSMENT: 1. Plantar fasciitis of right foot 2. Intractable right heel pain 49 yo F with 2 years of right heel pain, has been treated for plantar fasciitis PLAN: Treatment Plan: - Counseled patient on proper Achilles/gastroc stretching against a wall and dem onstrated this for her - Perform stretching at least 5 times per day - Will order MRI of the right ankle as exam/story has features of PTTI as well Medications: None Weight Bearing Status: WBAT RLE PT / OT: continue HEP Follow-Up: 4 weeks Radiographs at Follow-Up: none CHIEF COMPLAINT: Chief Complaint Patient presents with Foot Injury HISTORY OF PRESENT ILLNESS: 49 yo F who presents with right heel pain. Patient reports his has been going on for at least 2 years. Has been treated for plantar fasciitis by Mitch davis first with two short leg casts (which [...] file Gets together: Not on file Attends islam service: Not on file Active member of [...] weakness, or problems with balance VITAL SIGNS: Vital Signs Pulse: 78 BP: 147/79 Patient Position: Sitting Cuff Size: regular BP Location: left arm PHYSICAL EXAM: Constitutional: awake, alert, follows commands, and in no acute distress Skin: intact without abrasions, rashes, or draining sinuses Neurologic: normal gait, normal strength and sensation [...] COUNSELING / PATIENT EDUCATION: Plan of care Flavia Feng M.D. Orthopedic Surgery Resident [facility] Department of Orthopedic Surgery I have seen and evaluated this patient along with Dr. Flavia Feng. I have disc ussed the history, physical exam findings and we have discussed objective data. I agree with the residents findings and plan as documented. Discussed Plantar fa scia release if stretching doesn't help Jesus Mayberry MD Mail Handler Sorter [facility] Department of Orthopedic Surgery documented in this encounter Plan of Treatment Order Schedule Name Type Priority Associated Diagnoses Ordered: 03/11/2019 ORT - XR HEEL RIGHT 2V TN Charge Routine Intractable right heel (CHARGE ONLY) pain 1 Occurrences starting 03/11/2019 until 03/11/2020 MRI ANKLE RIGHT WO Imaging Routine Right ankle pain, CONTRAST unspecified chronicity Health Maintenance Due Date Last Done Comments MAMMOGRAM ANNUAL 1970 TETANUS SHOT (ADULT) 1985 BMI FOLLOW UP PLAN 01/08/1988 HIV SCREENING 01/08/1988 CERVICAL CANCER SCREENING 1991 3 YEAR FOLLOW UP FLU VACCINE > 6 MONTHS 01/17/2019 documented as of this encounter Results * XR CALCANEUS RIGHT (COMPLETE) (03/11/2019 10:27 AM CDT) Specimen Narrative Performed At For result, please reference physician's note on the corresponding date. documented in this encounter Visit Diagnoses Diagnosis Plantar fasciitis of right foot - Primary Intractable right heel pain Pain in limb Right ankle pain, unspecified chronicity documented in this encounter Insurance Type Payer Benefit Subscriber ID Effective Phone Address Plan / Dates Group [facility] [employer] [facility] xxxxxxxxxx 2016-P [facility] E [facility]AN [facility] [address] [place] [address] documented as of this encounter
--- NOTE | 2019-08-28 17:31 | Diagnostic Imaging Report ---
EXAMINATION: CHEST 2 VIEWS INDICATION: Cat bite, left shoulder pain, left chest pain ^cp ^[id number] ^[id number] COMPARISON: None FINDINGS: PA and lateral views TUBES and LINES: None. LUNGS: Lungs are well inflated. There is no evidence of pneumonia or pulmonary edema. PLEURA: No pleural effusion or pneumothorax. HEART AND MEDIASTINUM: The cardiomediastinal silhouette is unremarkable.. BONES AND SOFT TISSUES: No focal osseous lesions. No evidence of subcutaneous emphysema. UPPER ABDOMEN: Unremarkable. IMPRESSION: No acute thoracic abnormality. Signed by: Dr. Florida Ragland MD on 08/28/2019 5:28 PM
[2019-08-28] MEDS ORDERED: MORPHINE SULFATE 2 MG/ML SYR 1ML IV STA (17:57)
[2019-08-28] MEDS ORDERED: ONDANSETRON HCL INJ 2MG/ML 2ML 2 MG/ML VIAL IV STA (17:57)
[2019-08-28] MEDS ORDERED: CEFTRIAXONE SOD 1 GM/NS 50 ML 50 ML IV SCH (18:00)
[2019-08-28] MEDS ORDERED: CEFTRIAXONE SOD 1 GM VIAL ONE (18:11)
[2019-08-28 18:12] LABS: CLARITY,URINE SL CLOUDY (CLEAR); COLOR,URINE YELLOW (YELLOW)
[2019-08-28] MEDS ORDERED: DOXYCYCLINE HYCLATE TABLET 100 MG TAB ONE (18:12)
[2019-08-28] MEDS ORDERED: ASPIRIN 81 MG ENTERIC COATED PO ONE (18:12)
[2019-08-28 18:13] LABS: BILIRUBIN,URINE NEGATIVE (NEGATIVE); KETONES,URINE NEGATIVE (NEGATIVE); LEUKOCYTE ESTERASE ,URINE NEGATIVE (NEGATIVE); NITRITE,URINE NEGATIVE (NEGATIVE); PROTEIN,URINE DIPSTICK NEGATIVE (NEGATIVE); URINE UROBILINOGEN 0.2 mg/dL (0.2 - 1)
[2019-08-28 18:17] LABS: BASOPHILS # (AUTO) 0.1 (0.0-0.1); BASOPHILS % 0.8 % (0.0-1.0); EOSINOPHILS # (AUTO) 0.3 (0.0-0.4); EOSINOPHILS % 3.3 % (0.0-6.0); HEMATOCRIT 38.4 % (34.2-44.1); HEMOGLOBIN 13.1 g/dL (12.0-16.0); LYMPHOCYTES # (AUTO) 3.1 (1.0-3.2); LYMPHOCYTES % 39.4 % (18.0-39.1); MEAN CORPUSCULAR HEMOGLOBIN 31.8 pg (28-32); MEAN CORPUSCULAR HGB CONC 34.1 g/dL (31-35); MEAN CORPUSCULAR VOLUME 93.2 fL (81-99); MONOCYTES # (AUTO) 0.6 (0.2-0.8); NEUTROPHILS # (AUTO) 3.8 (2.1-6.9); NEUTROPHILS % 48.1 % (38.7-80.0); PLATELET COUNT 298 x10e3/uL (140-360); RED BLOOD COUNT 4.12 x10e6/uL (3.6-5.1); RED CELL DISTRIBUTION WIDTH 13.2 % (11.7-14.4)
[2019-08-28 18:27] LABS: INR 0.83; PROTHROMBIN TIME 11.9 seconds (11.9-14.5)
[2019-08-28 18:28] LABS: PARTIAL THROMBOPLASTIN TIME 35.4 seconds (23.8-35.5)
[2019-08-28] MEDS ORDERED: DOXYCYCLINE HYCLATE TABLET 100 MG TAB PO SCH (18:30)
[2019-08-28] MEDS ORDERED: ONDANSETRON HCL INJ 2MG/ML 2ML 2 MG/ML VIAL IV PRN (18:30)
[2019-08-28] MEDS ORDERED: VANCOMYCIN 1GM/NS 250 ML 250 ML IV ONE (18:30)
[2019-08-28] MEDS ORDERED: MORPHINE SULFATE 2 MG/ML SYR 1ML IV PRN (18:30)
[2019-08-28 18:35] LABS: ALANINE AMINOTRANSFERASE 15 IU/L (0-55); ALBUMIN/GLOBULIN RATIO 1.4 (0.8-2.0); ALKALINE PHOSPHATASE 82 IU/L (40-150); ANION GAP 9.3 mmol/L (8-16); BLOOD UREA NITROGEN 13 mg/dL (7-26); BUN/CREATININE RATIO 18 (6-25); CALCIUM 9.3 mg/dL (8.4-10.2); CARBON DIOXIDE 27 mmol/L (22-29); CHLORIDE 100 mmol/L (98-107); CREATINE KINASE 67 IU/L (29-168); CREATININE, SERUM 0.71 mg/dL (0.57-1.11); EST GLOMERULAR FILTRATION RATE > 60 ML/MIN (60-); GLUCOSE 86 mg/dL (74-118); POTASSIUM 4.3 mmol/L (3.5-5.1); SODIUM 132 mmol/L (136-145)
[2019-08-28 19:05] LABS: BACTERIA,URINE MODERATE /HPF; RBC,URINE 0-5 /HPF (0-5)
[2019-08-28 19:06] LABS: EPITHELIAL CELLS,URINE MANY /LPF
[2019-08-28] MEDS: SODIUM CHLORIDE 0.9% 1000ML 1,000 ML IV SCH (19:35)
[2019-08-28] MEDS ORDERED: HYDROMORPHONE 1MG/1ML INJ IV STA (19:42)
--- NOTE | 2019-08-28 19:48 | Diagnostic Imaging Report ---
Hand Complete CPT code: 52011 Indication:Cat bite, hand swelling. Technique: Three views of the right hand obtained Comparison: None. Findings: Distal radius and ulna appear intact. Carpal bones appear generally well aligned. The digits are intact and normal in morphology. Soft tissues: No air or radiopaque foreign body in the soft tissues. IMPRESSION: No foreign bodies in the soft tissues, subcutaneous emphysema, or osseous injury. Signed by: Dr. Florida Ragland MD on 08/28/2019 7:45 PM
[2019-08-28] MEDS ORDERED: OXCARBAZEPINE600 MG PO (20:57)
[2019-08-28] MEDS ORDERED: DULOXETINE HCL60 MG PO (20:58)
[2019-08-28] MEDS ORDERED: MELATONIN10 M2 PO (20:59)
[2019-08-28] MEDS ORDERED: ALPRAZOLAM0.5 MG PO (20:59)
[2019-08-28 22:00] VITALS: BP 129/61
--- NOTE | 2019-08-28 22:00 | NUR ---
Patient received via stretcher from ER. AAO x 4. Patient had complaints of pain to right hand (12/26). Will administer pain medication per eMAR. Respirations even and non-labored. Admission history obtained . Initial physical assessment performed. Patient oriented to room, call light ,visiting hours and plan of care. IVF infusing at 125 cc/hr. Fall precautions implemented. Patient instructed to call for assistance when needed. Call light within reach.
[2019-08-28] MEDS: MEROPENEM 1GM 100 ML IV SCH (23:20)
[2019-08-28] MEDS: TRAMADOL HCL 50 MG TAB PO PRN (23:21)
[2019-08-28] MEDS: MELATONIN 5 MG TABLET PO SCH (23:27)
[2019-08-28] MEDS: OXCARBAZEPINE 300 MG TAB PO SCH (23:27)
[2019-08-28] MEDS: ALPRAZOLAM 0.5 MG TAB PO PRN (23:27)
[2019-08-28 23:55] VITALS: BP 129/61
[2019-08-29] VITALS (8 sets, daily range): BP systolic 111–131; BP diastolic 53–67
--- NOTE | 2019-08-29 01:08 | NUR ---
Blood specimen sent to lab for analysis of Cardiac enzymes.
[2019-08-29 01:12] LABS: CREATINE KINASE 58 IU/L (29-168)
[2019-08-29] MEDS: SODIUM CHLORIDE 0.9% 1000ML 1,000 ML IV SCH ×2 (02:30→08:36)
--- NOTE | 2019-08-29 02:30 | Consultation ---
DATE OF CONSULTATION: REASON FOR CONSULTATION: Cellulitis of the right hand, cat bite infection, and smoking. HISTORY OF PRESENT ILLNESS: This patient who is a 49-year-old white female with history of hyperlipidemia and anxiety, comes in after her cat bit her on her right hand 24 hours ago while she was fighting to protect her baby according to the patient. The patient is telling me that the cat is currently on vaccination. The patient herself is currently on vaccination. ALLERGIES: PENICILLIN, BUT SHE CAN DO AMOXICILLIN AND KEFLEX WITH NO PROBLEM. THE PATIENT RECEIVED ROCEPHIN AND VANCOMYCIN AND NO PROBLEMS WELL DOXYCYCLINE. THE PATIENT IS CURRENTLY LYING IN BED COMFORTABLY. PAST MEDICAL HISTORY: As above. PAST SURGICAL HISTORY: She denies. SOCIAL HISTORY: There is no smoking, drug abuse, or alcohol abuse. FAMILY HISTORY: Otherwise hypertension. PHYSICAL EXAMINATION: GENERAL: She is currently alert, oriented, does not seem to be in acute distress. VITAL SIGNS: Stable. Currently, afebrile. HEENT: She is not icteric. NECK: Supple. CHEST: Clear bilateral. HEART: S1 and S2. No murmurs. ABDOMEN: Soft. Bowel sounds present. No tenderness. EXTREMITIES: The hand, there is redness. There is swelling of the hand. There is no fluctuation. No edema. SKIN: No rash. IMPRESSION: Cat bite, infected and allergies to penicillin. We will put the patient on meropenem. X-ray of the hand is ordered. We will see how she is going to do tomorrow. May need MRI of the hand if I do not see improvement. Currently, there is no fluctuation. No discoloration of the skin. MD ROMEO Jones/DORA /[id number]
[2019-08-29] MEDS: MORPHINE SULFATE INJ 4 MG/ML INJ 1ML IV PRN ×4 (03:59→20:18)
[2019-08-29 05:09] LABS: BASOPHILS # (AUTO) 0.1 (0.0-0.1); BASOPHILS % 1.1 % (0.0-1.0); EOSINOPHILS # (AUTO) 0.3 (0.0-0.4); EOSINOPHILS % 4.5 % (0.0-6.0); HEMATOCRIT 35.4 % (34.2-44.1); HEMOGLOBIN 11.8 g/dL (12.0-16.0); LYMPHOCYTES # (AUTO) 3.4 (1.0-3.2); LYMPHOCYTES % 47.3 % (18.0-39.1); MEAN CORPUSCULAR HGB CONC 33.3 g/dL (31-35); MEAN CORPUSCULAR VOLUME 95.9 fL (81-99); MONOCYTES # (AUTO) 0.6 (0.2-0.8); MONOCYTES % 8.6 % (4.4-11.3); NEUTROPHILS # (AUTO) 2.7 (2.1-6.9); NEUTROPHILS % 38.4 % (38.7-80.0); PLATELET COUNT 250 x10e3/uL (140-360); RED BLOOD COUNT 3.69 x10e6/uL (3.6-5.1); RED CELL DISTRIBUTION WIDTH 13.1 % (11.7-14.4)
[2019-08-29 05:32] LABS: ANION GAP 11.3 mmol/L (8-16); BLOOD UREA NITROGEN 15 mg/dL (7-26); BUN/CREATININE RATIO 23 (6-25); CALCIUM 8.3 mg/dL (8.4-10.2); CARBON DIOXIDE 23 mmol/L (22-29); CHLORIDE 103 mmol/L (98-107); CREATININE, SERUM 0.65 mg/dL (0.57-1.11); EST GLOMERULAR FILTRATION RATE > 60 ML/MIN (60-); GLUCOSE 101 mg/dL (74-118); POTASSIUM 4.3 mmol/L (3.5-5.1); SODIUM 133 mmol/L (136-145)
[2019-08-29] MEDS: NICOTINE 21 MG/EA PATCH TOP SCH (05:43)
[2019-08-29] MEDS: MEROPENEM 1GM 100 ML IV SCH ×3 (06:00→22:12)
--- NOTE | 2019-08-29 06:00 | NUR ---
Dr. Cherry paged regarding 'routine consult'. Awaiting call back.
--- NOTE | 2019-08-29 06:29 | Diagnostic Imaging Report ---
EXAMINATION: CHEST SINGLE (PORTABLE) INDICATION: Chest pain. COMPARISON: Chest radiograph 08/28/2019. FINDINGS: TUBES and LINES: None. LUNGS: Lungs are moderately inflated. There is no evidence of pneumonia or pulmonary edema. PLEURA: No pleural effusion or pneumothorax. HEART AND MEDIASTINUM: The cardiomediastinal silhouette is unremarkable. There are atherosclerotic calcifications within the aorta. BONES AND SOFT TISSUES: No acute osseous lesion. Soft tissues are unremarkable. UPPER ABDOMEN: No free air under the diaphragm. IMPRESSION: No acute thoracic abnormality. Signed by: Dr. Emily Gaspar MD on 08/29/2019 6:26 AM
--- NOTE | 2019-08-29 06:50 | NUR ---
Walking rounds done. Shift report given to oncoming nurse.
[2019-08-29] MEDS: DULOXETINE HCL 30 MG DELAYED RELEASE PO SCH (08:34)
[2019-08-29 08:45] LABS: CREATINE KINASE 55 IU/L (29-168)
[2019-08-29] MEDS: TRAMADOL HCL 50 MG TAB PO PRN (11:50)
[2019-08-29] MEDS ORDERED: GADOBENATE DIMEGLUMINE 1 ML IV ONE (12:08)
--- NOTE | 2019-08-29 12:22 | History and Physical ---
HISTORY OF PRESENT ILLNESS: This is a 49-year-old female with a past medical history of hyperlipidemia, depression and anxiety, was in her usual state of health until the patient has a cat bite 2 days ago on right hand. The patient started developing same day swelling, severe redness of the hand with lot of bite oseguera. The patient came to the emergency room last night. ER doctor admitted for IV antibiotic. No chest pain. No shortness of breath. No fever. No cough. No abdomen pain. No nausea. No vomiting. No backache. No burning urination. No diarrhea. No constipation. The patient has a history of insomnia. PAST MEDICAL HISTORY: 1. Depression. 2. Hyperlipidemia. 3. Anxiety. 4. Nephrolithiasis. PAST SURGICAL HISTORY: 1. . 2. Gastric sleeve surgery. 3. Uterine ablation. FAMILY HISTORY: Father diagnosed with heart disease. SOCIAL HISTORY: The patient , lives with the family. Drinks alcohol occasionally. Smokes cigarette 11 to 20 cigarettes per day. ALLERGIES: TO PENICILLIN. MEDICATION LIST: Attached. REVIEW OF SYSTEMS: CONSTITUTIONAL: Denies fatigue and weakness. HEENT: No diplopia or blurring of vision. CARDIOPULMONARY: No chest pain. No shortness of breath. No cough. ALIMENTARY SYSTEM: No nausea. No vomiting. GENITOURINARY: No dysuria. No hematuria. MUSCULOSKELETAL: Has right hand pain. CENTRAL NERVOUS SYSTEM: No focal weakness. No seizure. PHYSICAL EXAMINATION: GENERAL: A 49-year-old female, who is alert and oriented, in no gross distress. VITAL SIGNS: Temperature 96.6, pulse 73, respiratory rate 19, blood pressure 118/83. HEENT: Head is atraumatic and normocephalic. Pupils bilaterally equal to light. Extraocular muscles intact. NECK: Supple. No JVD. No carotid bruit. LUNGS: Clear to auscultation and percussion bilaterally. No added sound. HEART: S1 and S2. Regular rate and rhythm. No S3, no S4, or murmur. ABDOMEN: Soft and nontender. No guarding. No rigidity. EXTREMITIES: Right hand cat bite valerie with severe redness and tenderness on touch. Restrictive movement on the hand joint. Lower extremity, no edema. Peripheral pulses +1. COMMERCIAL DEVELOPMENT MANAGER: Grossly nonfocal. DIAGNOSTIC DATA: Chest x-ray is normal. X-ray right hand, no foreign body. LABORATORY DATA: Urine is white count 6 to 10. Sodium 133, potassium normal. BUN and creatinine normal. CK and CK-MB is normal. White count 7.11, hemoglobin 11.8, hematocrit 35.4, and platelet is 250. ASSESSMENT: 1. Right hand cellulitis. 2. Cat bite on right hand. 3. Hyperlipidemia. 4. Anxiety, depression. PLAN: Admit the patient to medical floor. IV vancomycin and meropenem. ID consult, Dr. Cherry. IV fluids normal saline 75 mL/h. Atypical chest pain. Cardiac enzyme negative. BMP in the morning. Case discussed with the patient, all condition and prognosis. MD ANTHONY Blunt/MODL /[id number]
--- NOTE | 2019-08-29 18:39 | Diagnostic Imaging Report ---
TECHNIQUE: Magnetic resonance imaging of the right hand was performed without and with injected contrast. 20 cc of MultiHance HISTORY: Pain, cellulitis COMPARISON: None. FINDINGS: Poor fat suppression of multiple phalanges. No fracture. No bone marrow edema on the STIR sequence. No T1 bone marrow replacement. Soft tissue swelling and edema predominantly involving the dorsal hand. No well-defined abscess. IMPRESSION: Cellulitis of the dorsal soft tissues of the hand. No osteomyelitis or abscess. Signed by: Dr. Kirby Mancera M.D. on 08/29/2019 6:36 PM
--- NOTE | 2019-08-29 19:39 | NUR ---
REPORT RECEIVED FROM DAY RN.PT IN SEMI-FOWLERS POSITION WITH RT HAND ELEVATED. RT HAND LESS REDDENED AND LESS SWOLLEN. RESPIRATIONS ARE EVEN AND UNLABORED. LUNGS CLEAR. PT REPORTS CONSTIPATION- AWAITING CALL BACK FROM DR POON. PT DRINKING COFFEE - DECAF AND PRUNE JUICE. PT VERBALIZE WANT PAIN MED CHANGED SO LESS CONSTIPATED. PT VOIDING WITHOUT DIFFICULTY. PIV IN LEFT HAND 20 G PATENT. NS INFUSING AT 75 ML/HR VIA IV PUMP. PT REMAINS ALERT AND ORIENTED X4. COOPERATIVE WITH CARE. BED LOCKED AND IN LOW POSITION. PT HAS SKID FREE SOCKS ON. CALL LIGHT WITHIN REACH.
--- NOTE | 2019-08-29 19:39 | NUR ---
Report given to oncoming nurse of patient's status. Resting in bed. No s/s of acute distress noted. Side rails upx2, call light within reach.
[2019-08-29] MEDS: MELATONIN 5 MG TABLET PO SCH (20:22)
[2019-08-29] MEDS: OXCARBAZEPINE 300 MG TAB PO SCH (20:22)
--- NOTE | 2019-08-29 23:03 | NUR ---
PT HAD DIALYSIS OVER 3 HRS. 2LITERS REMOVED. PRE DIALYUSIS WT 67KG. POST DIALYSIS WT 65 KG. PRESSURE DRESSING TO LT AV FISTULA. PT TOLERATED PROCEDURE WELL.
[2019-08-30] VITALS: BP 122/59
[2019-08-30] MEDS: SODIUM CHLORIDE 0.9% 1000ML 1,000 ML IV SCH (00:46)
[2019-08-30] MEDS: ACETAMINOPHEN/CODEINE 300MG - 30MG TAB PO PRN ×2 (00:51→09:33)
[2019-08-30] MEDS: ALPRAZOLAM 0.5 MG TAB PO PRN (01:43)
[2019-08-30 04:00] VITALS: BP 128/60
[2019-08-30] MEDS: MEROPENEM 1GM 100 ML IV SCH (05:43)
[2019-08-30 06:01] LABS: ANION GAP 9.3 mmol/L (8-16); BLOOD UREA NITROGEN 10 mg/dL (7-26); BUN/CREATININE RATIO 17 (6-25); CALCIUM 8.2 mg/dL (8.4-10.2); CARBON DIOXIDE 25 mmol/L (22-29); CHLORIDE 102 mmol/L (98-107); CREATININE, SERUM 0.59 mg/dL (0.57-1.11); EST GLOMERULAR FILTRATION RATE > 60 ML/MIN (60-); GLUCOSE 77 mg/dL (74-118); POTASSIUM 4.3 mmol/L (3.5-5.1); SODIUM 132 mmol/L (136-145)
[2019-08-30 07:52] VITALS: BP 155/71
[2019-08-30 08:17] VITALS: BP 155/71
[2019-08-30] MEDS ORDERED: SENNA-S TABLET PO SCH (09:00)
[2019-08-30] MEDS: NICOTINE 21 MG/EA PATCH TOP SCH (09:20)
[2019-08-30] MEDS: DULOXETINE HCL 30 MG DELAYED RELEASE PO SCH (09:20)
[2019-08-30] MEDS ORDERED: LEVAQUIN500 MG PO (11:19)
[2019-08-30] MEDS ORDERED: CLEOCIN HCL150 MG PO (11:20)
[2019-08-30] MEDS ORDERED: ONDANSETRON HCL 4 MG ORAL DISINTEGRATING TAB PO PRN (12:00)
[2019-08-30 12:08] VITALS: BP 140/66
--- NOTE | 2019-08-30 12:28 | NUR ---
Patient discharged home, Discharge order received from Dr Shelley joshi, Dr Guerrero had rounds, stated patient can go home, IV canula removed with tip intact, no ss of infiltration, Rt Hand infection site is intact. not in any distress,
--- NOTE | 2019-08-30 17:03 | Consultation ---
DATE OF CONSULTATION: 08/30/2019 Physician requesting the consultation is Dr. Flora Camacho. Consultation is requested of Ortega Guerrero MD, Hand Surgery. CHIEF COMPLAINT: Cat bite, right hand. HISTORY OF PRESENT ILLNESS: The patient is a 49-year-old [id number] female, who states that she was bit by her cat on the of this month on the dorsum of the right hand. The cat was fighting with raccoon. She sustained two bite wounds, one on the dorsal aspect of the right long finger and one on the dorsal aspect of the right little finger. She states over 24 hours, the hand swelled and became red and painful. She went to the emergency room and was admitted on the evening of the . She has received intravenous antibiotics since then and she has undergone MRI testing. PAST MEDICAL AND SURGICAL HISTORY: Noncontributory to the current problem. PERTINENT PHYSICAL EXAMINATION: VITAL SIGNS: Show her to be afebrile and her vital signs are stable. SKIN: Shows evidence of puncture wounds on the dorsal aspect of the right long finger over the PIP joint and evidence of puncture wounds over the right little finger MP joint. There is no purulent drainage from either of these sites. There is a modest amount of swelling over the dorsum of the hand, which has resolved markedly since admission. With both active and passive range of motion, there is no extreme pain and is only limited by the amount of swelling that remains present. There does not appear to be any evidence of tenosynovitis at the present time. IMAGING STUDIES: The MRI shows no intra-articular infection or extension of the injury. It appears that the injury is limited to the subcutaneous space consistent with cellulitis. LABORATORY DATA: Her WBC is 7. Blood cultures were negative. IMPRESSION: Cellulitis, right hand secondary to cat bite. PLAN: The patient is going home today. She is being discharged on Levaquin and Cleocin. I have advised the patient that she can come to the office and follow up in 3-5 days. I have encouraged her to utilize warm soaks while she is maintained on the antibiotics at home. Thank you for your expression of professional confidence. Ortega Guerrero MD ER/MODL /[id number]
== END 2019-08-30 12:50 | disposition home or self-care (01) | DRG 605 ==
LOC: ER 16:02 → ERHOLD 18:34 → MED/SURG2 22:01
PROVIDERS: ADMIT Internal Medicine; ATTEND Internal Medicine
DX: S61.451A Open bite of right hand, initial encounter (principal); L03.113 Cellulitis of right upper limb; E78.5 Hyperlipidemia, unspecified; F32.9 Major depressive disorder, single episode, unspecified; F41.8 Other specified anxiety disorders; W55.01XA Bitten by cat, initial encounter; Y93.89 Activity, other specified; Y92.019 Unspecified place in single-family (private) house as the place of occurrence of the external cause; Z88.0 Allergy status to penicillin; S80.812A Abrasion, left lower leg, initial encounter; D64.9 Anemia, unspecified
CPT/HCPCS: 36415; 71045; 71046; 80048; 80053; 81001; 82550; 82553; 83605; 84484; 84702; 85025; 85610; 85730; 87040; 93005; 99284; J0696; J1170; J2270; J2405; J3370; J7030

== ENCOUNTER 2020-01-28 13:06 | Emergency (ER) | payer OTHER ==
[~2020-01-28] VITALS: Ht 162.6 cm; Wt 104.8 kg
[~2020-01-28 13:06] MED LIST changes: +ALPRAZOLAM0.5 MG PO; +CLEOCIN HCL150 MG PO; +DULOXETINE HCL60 MG PO; +MELATONIN10 M2 PO; +OXCARBAZEPINE600 MG PO
[2020-01-28] MEDS ORDERED: KETOROLAC TROMETHAMINE 30 MG/ML VIAL IV STA (13:43)
[2020-01-28] MEDS ORDERED: ONDANSETRON HCL INJ 2MG/ML 2ML 2 MG/ML VIAL IV STA (13:43)
[2020-01-28] MEDS ORDERED: SODIUM CHLORIDE 0.9% 1000ML 1,000 ML IV ONE (13:45)
[2020-01-28] MEDS ORDERED: FENTANYL CITRATE/PF 100MCG/2 ML INJ IV ONE ×2 (14:00→15:15)
--- NOTE | 2020-01-28 14:11 | Emergency Department Note ---
History of Present Illnes History of Present Illness Chief Complaint: Abdominal Complaints History of Present Illness This is a 50 year old female Chief Complaint Comment KIDNEY STONES HX. RT FLANK ONSET YESTERDAY. NO UTI S/S. HYSTERECTOMY . Historian: Patient Arrival Mode: Car Cottrell Operator Required: No Onset (how long ago): day(s) (1) Location: Rt flank Quality: Sharp Radiation: Reports non-radiation Severity: moderate Onset quality: sudden Duration (how long): day(s) (1) Timing of current episode: constant Progression: unchanged Chronicity: new Context: Denies recent illness Relieving factors: none Exacerbating factors: none Treatments prior to arrival: none Past Medical/Family History Physician Review I have reviewed the patient's past medical and family history. Any updates have been documented here. Past Medical History Recent Fever: No Clinical Suspicion of Infectio: No New/Unexplained Change in Ment: No Past Medical History: Kidney Stones, Anxiety, Depression, Hyperlipedemia Past Surgical History: Other Surgery: Gastric Sleeve Bypass 2011 UTERINE ABLASION Social History Smoking Cessation: Current every day smoker Counseling Performed: No Alcohol Use: Occasional Any Illegal Drug Use: No Other Last Tetanus: OOD Any Pre-Existing Lines (PICC,: No Review of Systems Review of Systems Constitutional: Reports no symptoms EENTM: Reports no symptoms Cardiovascular: Reports no symptoms Respiratory: Reports no symptoms Gastrointestinal: Reports no symptoms Genitourinary: Reports no symptoms, Reports pain (Flank pain- R) Musculoskeletal: Reports no symptoms Integumentary: Reports no symptoms Neurological: Reports no symptoms Psychological: Reports no symptoms Endocrine: Reports no symptoms Hematological/Lymphatic: Reports no symptoms Physical Exam Related Data Allergies: Coded Allergies: penicillin (Verified Allergy, Intermediate, Hives, gum ache, 02/07/18) Triage Vital Signs Vital Signs Date Time Temp Pulse Resp B/P (MAP) Pulse Ox O2 Delivery O2 Flow Rate FiO2 01/28/20 13:10 98.3 101 18 136/68 100 Room Air Vital signs reviewed: Yes Physical Exam CONSTITUTIONAL Constitutional: Present well-developed, Present well-nourished HENT HENT: Present normocephalic, Present atraumatic, Present oropharynx clear/moist, Present nose normal HENT L/R: Present left ext ear normal, Present right ext ear normal EYES Eyes: Reports PERRL, Reports conjunctivae normal NECK Neck: Present ROM normal PULMONARY Pulmonary: Present effort normal, Present breath sounds normal CARDIOVASCULAR Cardiovascular: Present regular rhythm, Present heart sounds normal, Present capillary refill normal, Present normal rate GASTROINTESTINAL Abdominal: Present soft, Present nontender, Present bowel sounds normal GENITOURINARY Genitourinary: Present exam deferred, Present other (Right CVA tenderness) SKIN Skin: Present warm, Present dry MUSCULOSKELETAL Musculoskeletal: Present ROM normal NEUROLOGICAL Neurological: Present alert, Present oriented x 3, Present no gross motor or sensory deficits PSYCHOLOGICAL Psychological: Present mood/affect normal, Present judgement normal Results Laboratory Lab results reviewed: Yes Imaging Imaging results reviewed: Yes Assessment & Plan Medical Decision Making MDM 50-year-old female with a history of kidney stones. 4 right-sided flank pain which started yesterday. She denies any other symptoms and otherwise feels at her baseline health. Denies dysuria. Initial differential significant for functional abdominal pain versus kidney stone versus appendicitis. CT abdomen and pelvis and labs are consistent with right-sided kidney stones. They are small and should be able to pass without difficulty. Will prescribe morphine sulfate instant release as well as instructed her to use ibuprofen. Referral for urology was placed as well. Patient states removed plan and she is appropriate for discharge. Part of this note was dictated with Moy and is subject to recognition errors. Reassessment Reassessment time: 14:12 Reassessment Well appearing, NAD Assessment & Plan Final Impression: (1) Ureteral stone Depart Disposition: HOME, SELF-CARE Last Vital Signs Date Time Temp Pulse Resp B/P (MAP) Pulse Ox O2 Delivery O2 Flow Rate FiO2 01/28/20 13:10 98.3 101 18 136/68 100 Room Air Home Meds Active Scripts Nicotine (NICODERM CQ) 1 Each Patch.td24, 21 MG TOP DAILY for 30 Days Prov:MAGDA FLORES MD 02/08/18 Reported Medications Clindamycin Hcl (CLEOCIN HCL) 150 Mg Capsule, 300 MG PO Q8H, CAP 08/30/19 Levofloxacin (LEVAQUIN) 500 Mg Tablet, 500 MG PO DAILY for 21 Days, TAB 08/30/19 Melatonin (Melatonin) 10 Mg Capsule, 20 MG PO HS 08/28/19 Alprazolam (ALPRAZOLAM) 0.5 Mg Tablet, 0.5 MG PO HS PRN for ANXIETY 08/28/19 Duloxetine HCl (Duloxetine HCl) 60 Mg Capsule.dr, 60 MG PO DAILY 08/28/19 Oxcarbazepine (OXCARBAZEPINE) 600 Mg Tablet, 1800 MG PO HS 08/28/19 Medications in the ED Ketorolac Tromethamine 30 mg ONCE STAT IV ; Start 01/28/20 at 13:43; Stop 01/28/20 at 13:46; Status DC Ondansetron HCl 4 mg NOW STAT IV ; Start 01/28/20 at 13:43; Stop 01/28/20 at 13:46; Status DC Sodium Chloride 1,000 ml @ 0 mls/hr Q0M ONCE IV ; Start 01/28/20 at 13:45; Stop 01/28/20 at 13:46; Status DC Fentanyl Citrate 50 mcg ONCE ONCE IV ; Start 01/28/20 at 14:00; Stop 01/28/20 at 14:01; Status DC SADE ARREOLA MD Jan 28, 2020 14:11
[2020-01-28 14:15] LABS: BASOPHILS # (AUTO) 0.1 (0.0-0.1); BASOPHILS % 1.1 % (0.0-1.0); EOSINOPHILS # (AUTO) 0.3 (0.0-0.4); EOSINOPHILS % 3.7 % (0.0-6.0); HEMATOCRIT 41.1 % (34.2-44.1); HEMOGLOBIN 13.4 g/dL (12.0-16.0); LYMPHOCYTES # (AUTO) 2.8 (1.0-3.2); LYMPHOCYTES % 34.1 % (18.0-39.1); MEAN CORPUSCULAR HEMOGLOBIN 30.7 pg (28-32); MEAN CORPUSCULAR HGB CONC 32.6 g/dL (31-35); MEAN CORPUSCULAR VOLUME 94.3 fL (81-99); MONOCYTES # (AUTO) 0.7 (0.2-0.8); MONOCYTES % 8.5 % (4.4-11.3); NEUTROPHILS # (AUTO) 4.3 (2.1-6.9); NEUTROPHILS % 52.4 % (38.7-80.0); PLATELET COUNT 334 x10e3/uL (140-360); RED BLOOD COUNT 4.36 x10e6/uL (3.6-5.1); RED CELL DISTRIBUTION WIDTH 13.5 % (11.7-14.4)
--- OUTSIDE RECORDS SUMMARY | 2020-01-28 14:16 | XMS REPORT | Clinical Summary ---
Author Author LOGAN [facility] Address Unknown Phone Unavailable Care Team Providers Care Conflicts Analyst Name Role Phone PCP Unavailable Allergies Not on File Medications Not on file Active Problems Not on file Social History Date Tobacco Use Types Packs/Day Years Used Never Assessed Sex Assigned at Date Recorded Not on file Industry Job Start Date Occupation Not on file Not on file Not on file Travel End Travel History Travel Start No recent travel history available. Last Filed Vital Signs Not on file Plan of Treatment Not on file Results Not on fileafter 01/27/2019 Insurance Payer Benefit Subscriber ID Type Phone Address Plan / Group [employer] xxxxxxxxxx [employer] E EXCHANGE
--- OUTSIDE RECORDS SUMMARY | 2020-01-28 14:16 | XMS REPORT | Continuity of Care Document ---
Author Author [facility] t Organization [facility] Address [address] [place] [address] Phone Unavailable Care Team Providers Care Biomedical Photographer Name Role Phone DANIA BELTRAN, ROSALBA PCP Shawanda BELTRAN, M Jesus Attphys Unavailable POON, DILIPKUMAR Attphys Unavailable JOHN FLORES Attphys Unavailable MANEEVESE, V BARNEY Attphys Unavailable POON, DILIPKUMAR Admphys Unavailable JOHN FLORES Admphys Unavailable Payers Payer Name Policy Type Policy Number Effective Date Expiration Date Suzanne ayala [facility] [id number] 2019 00:00:00 00:00:00 [facility] [id number] 2016 00:00:00 [facility] Problems Condition Name Condition Details Condition Category Status Onset Date Resolution Date Last Treatment Date Treating Clinician Comments Source Chest pain Chest pain Problem Active C [facility] Urinary tract infection UTI (urinary tract infection) Problem Active [facility] Calculus of ureter Ureteral stone Problem Active [facility] Cerebrovascular accident (CVA) CVA (cerebral vascular accident) Pro blem Active [facility] Allergies, Adverse Reactions, Alerts Allergy Name Allergy Type Status Severity Reaction(s) Onset Date Inacti ve Date Treating Clinician Comments Source penicillin Allergy to Substance Active Moderate Hives, gum ache 2018-02-07 00:00:00 [facility] Social History Social Habit Start Date Stop Date Quantity Comments Source Sex [facility] Medications Ordered Medication Name Filled Medication Name Start Date Stop Da te Current Medication? Ordering Clinician Indication Dosage Frequency Signature (SIG) Comments Components Source Nicotine (Nicoderm Cq) 1 Each Patch.td24 Nicotine (Mu oderm Cq) 1 Each Patch.td24 2018-02-08 00:00:00 Yes John Flores Md 21 Lakia y [facility] Aspirin 325 Mg Tablet, 325 Mg Oral Aspirin 325 Mg Tablet, 32 5 Mg Oral 2018-02-08 00:00:00 2019-08-28 00:00:00 No John Flores Md 325 Daily [facility] Metoprolol Tartrate (Lopressor) 25 Mg Tab, 25 Mg Oral Metoprolol Tartrate (Lopressor) 25 Mg Tab, 25 Mg Oral 2018-02-08 00:00:00 2019-08-28 00:00:00 No John Flores Md 25 Every 12 Hours [facility] Pravastatin Sodium 40 Mg Tablet, 40 Mg Peg Tube Pravas tatin Sodium 40 Mg Tablet, 40 Mg Peg Tube 2018-02-08 00:00:00 2019-08-28 00:00:00 No John Flores Md 40 Bedtime [facility] Docusate Sodium (Dok) 100 Mg Tablet, 100 Mg Oral Docus ate Sodium (Dok) 100 Mg Tablet, 100 Mg Oral 2016-05-31 00:00:00 2016-07-04 00:00:00 No John edwards Md 100 Every 12 Hours [facility] Magnesium Hydroxide (Milk Of Magnesia) 400 Mg/5 Ml Ora l.susp, 30 Ml Oral Magnesium Hydroxide (Milk Of Magnesia) 400 Mg/5 Ml Oral.susp, 30 Ml Oral 2016-05-31 00:00:00 2016-07-04 00:00:00 No John Flores Md 30 Daily [facility] Nicotine (Nicoderm Cq) 1 Each Patch.td24, 14 Mg Topica lly Nicotine (Nicoderm Cq) 1 Each Patch.td24, 14 Mg Topically 2016-05-31 00:00:00 2016-07-04 00:00:00 Fabienne Flores Md 14 Daily@17 [facility] Sennosides (Senokot) 8.6 Mg Tablet, 8.6 Mg Oral Sennos ides (Senokot) 8.6 Mg Tablet, 8.6 Mg Oral 2016-05-31 00:00:00 2016-07-04 00:00:00 No John edwards Md 8.6 Every 12 Hours [facility] Alprazolam 0.5 Mg Tablet Alprazolam 0.5 Mg Tablet Yes .5 Bedtime as needed for Anxiety [facility] Clindamycin Hcl (Cleocin Hcl) 150 Mg Capsule Clindamyc in Hcl (Cleocin Hcl) 150 Mg Capsule Yes 300 Every 8 Hours C [facility] Duloxetine Hcl 60 Mg Capsule. Duloxetine Hcl 60 Mg Capsule. Yes 60 Daily [facility] Levofloxacin (Levaquin) 500 Mg Tablet Levofloxacin (Levaquin) 500 M g Tablet Yes 500 Daily [facility] Melatonin 10 Mg Capsule Melatonin 10 Mg Capsule Yes 20 Bedtime [facility] Oxcarbazepine 600 Mg Tablet Oxcarbazepine 600 Mg Tablet Yes 1800 Bedtime [facility] Diphenhydramine Hcl (Benadryl) 25 Mg Capsule, 25 Mg Or al Diphenhydramine Hcl (Benadryl) 25 Mg Capsule, 25 Mg Oral 2019-08-28 00:00:00 No 25 Bedtime [facility] Fluoxetine Hcl (Prozac) 20 Mg Capsule, 40 Mg Fluoxetin e Hcl (Prozac) 20 Mg Capsule, 40 Mg 2019-08-28 00:00:00 No 40 Bedtime [facility] Melatonin 3 Mg Tablet, 10 Mg Oral Melatonin 3 Mg Tablet, 10 Mg O ral 2019-08-28 00:00:00 No 10 Bedtime [facility] Oxybutynin Chloride (Ditropan Xl) 5 Mg Tab.er.24, 5 Mg Oral Oxybutynin Chloride (Ditropan Xl) 5 Mg Tab.er.24, 5 Mg Oral 2019-08-28 00:00:00 No 5 Bedtime [facility] Phenazopyridine Hcl (Azo) 95 Mg Tablet, 1 Tab Oral Phe nazopyridine Hcl (Azo) 95 Mg Tablet, 1 Tab Oral 2019-08-28 00:00:00 No 1 Da syed [facility] Tramadol Hcl (Ultram) 50 Mg Tablet, 50 Mg Oral Tramado l Hcl (Ultram) 50 Mg Tablet, 50 Mg Oral 2019-08-28 00:00:00 No 50 Every 4 Hours as needed for Pain [facility] Levofloxacin (Levaquin) 500 Mg Tablet, 500 Mg Oral Lev ofloxacin (Levaquin) 500 Mg Tablet, 500 Mg Oral 2016-07-04 00:00:00 No 500 D aily [facility] Procedures Procedure Date / Time Performed Performing Clinician [facility] e MRI non-joint region of extremity upper wo then w contrast 2 00:00:00 JOYCELYN OLIVEROS [facility] X-ray of chest, two views 2019-08-28 00:00:00 JORDAN STEPHENS [facility] Encounters Start Date/Time End Date/Time [facility] ID Source 2019-11-19 12:46:33 2019-11-19 14:23:27 Office Visit Jesus Draper [facility] [id number] 2019-08-28 18:34:00 2019-08-30 12:50:00 Discharged Inpatient [address] [facility] [id number] [facility] 2018-02-07 11:22:00 2018-02-08 12:30:00 Discharged Inpatient (obs) [address] [facility] [id number] [facility] 2017-11-16 17:14:00 2017-11-16 21:30:00 Departed Emergency Room [address] [facility] [id number] [facility] 2017-04-03 18:31:00 2017-04-03 19:35:[address] [facility] [id number] [facility] Results Test Description Test Time Test Comments Results Result Comments Source Sodium Level 2019-08-30 06:14:00 Test Item Sodium Level (test code = 2951-2) 132 136-145 L [facility] CenterPotassium Tzirc2015-17-90 06:14:00* Test Item Value Reference Range Interpretation Comments Potassium Level (test code = 2823-3) 4.3 3.5-5.1 [facility] CenterChloride Rozvn4370-40-00 06:14:00* Test Item Value Reference Range Interpretation Comments Chloride Level (test code = 2075-0) 102 98-107 [facility] CenterCarbon Dioxide Ufjfl8244-94-57 06:14:00* Test Item Value Reference Range Interpretation Comments Carbon Dioxide Level (test code = 2028-9) 25 22-29 [facility] CenterAnion Yft0899-82-53 06:14:00* Test Item Value Reference Range Interpretation Comments Anion Gap (test code = 08024-0) 9.3 8-16 [facility] CenterBlood Urea Tshnkkas8114-38-59 06:14:00* Test Item Value Reference Range Interpretation Comments Blood Urea Nitrogen (test code = 3094-0) 10 7-26 [facility] CenterCreatinine2020-03-13 06:14:00* Test Item Value Reference Range Interpretation Comments Creatinine (test code = 2160-0) 0.59 0.57-1.11 [facility] CenterBUN/Creatinine Hlhoy3380-95-83 06:14:00* Test Item Value Reference Range Interpretation Comments BUN/Creatinine Ratio (test code = 3097-3) 17 6-25 [facility] CenterEstimat Glomerular Filtration Rate 2019-08-30 06:14:00* Test Item Value Reference Range Interpretation Comments Estimat Glomerular Filtration Rate (test code = 729412486) > 60 >60 Ranges were taken from the National Kidney Disease Education Program and the [facility] Foundation literature.Reference ranges:60 or greater: Iicamt84-60 ( for 3 consecutive months): Chronic kidney disease 15 or less: Kidney failureShannon Medical CenterGlucose Lpkbb7733-24-27 06:14:00* Test Item Value Reference Range Interpretation Comments Glucose Level (test code = WVB2174) 77 74-118 [facility] CenterCalcium Jkiqp9716-35-84 06:14:00* Test Item Value Reference Range Interpretation Comments Calcium Level (test code = 72152-8) 8.2 8.4-10.2 L [facility] CenterMRI HAND RIGHT [id number] 18:34:00 [facility] [address] [address] Patient Name: ZACARIAS JAIME MR #: [id number] : 1970 Age/Sex: 49/F Req #: [id number] Adm Physician: JORDI POON MD Ordered by: JOYCELYN OLIVEROS Report #: [id number] Location: MED/SURG2 Room/Bed: [facility] Procedure: 0312-0 007 MRI/MRI HAND RIGHT WOW Exam Date: Exam Time: REPORT STATUS: Signed TECHNIQUE: Magnetic resonance imaging of the right hand was performed without and with injected contrast. 20 cc of MultiHance HISTORY: Pain, cellulitis COMPARI SON: None. FINDINGS: Poor fat suppression of multiple phalanges. No fracture. No bone marrow edema on the STIR sequence. No T1 bone marrow rep lacement. Soft tissue swelling and edema predominantly involving the dorsal hand. No well-defined abscess. IMPRESSION: Cellulitis of the do rsal soft tissues of the hand. No osteomyelitis or abscess. Signed by: Dr. Fab Perez M.D. on 08/29/2019 6:36 PM Dictated By: FAB Rosa 35 Transcribed B y: KORNI on 08/29/191835 COPY TO: JOYCELYN OLIVEROS Blood Uirvzos9394-07-57 18:08:00* Test Item Value Reference Range Interpretation Comments Blood Culture (test code = 41756435) NO GROWTH AFTER 24 HOURS [facility] CenterCreatine Ndddlb9440-78-41 08:47:00* Test Item Value Reference Range Interpretation Comments Creatine Kinase (test code = 2157-6) 55 29-168 [facility] CenterCreatine Kinase QK1268-31-02 08:47:00* Test Item Value Reference Range Interpretation Comments Creatine Kinase MB (test code = 21544-7) 1.10 0-5.0 [facility] CenterTroponin D5792-75-03 08:47:00* Test Item Value Reference Range Interpretation Comments Troponin I (test code = YGD2114) < 0.001 0-0.300 [facility] CenterCHEST SINGLE (PORTABLE)2019-08-29 06:24:[address] [address] Patient Name: ZACARIAS JIAME MR #: [id number] : 1970 Age/Sex: 49/F Req #: [id number] Adm Physician: JORDI POON MD Ordered by: PHILL TERRAZAS NP Report #: [id number] Location: MED/SURG2 Room/Bed: [facility] Procedure: 07 DX/CHEST SINGLE (PORTABLE) Exam Date: 08/29/19 Ex am Time: 0535 REPORT STATUS: Signed EXAMINATION: CHEST SINGLE (PORTABLE) INDICATION: Chest pain. COMPARISON: Chest radiograph 08/28/2019. FINDINGS: TUBES and LINES: None. LUNGS: Lungs are moderately inflated. There is no evidence of pneu monia or pulmonary edema. PLEURA: No pleural effusion or pneumothorax. HEART AND MEDIASTINUM: The cardiomediastinal silhouette is unremarkable. T here are atherosclerotic calcifications within the aorta. BONES AND SOFT TISSUES: No acute osseous lesion. Soft tissues are unremarkable. UPPER ABDOMEN: No free air under the diaphragm. IMPRESSION: No acute thora cic abnormality. Signed by: Dr. Tray Forman MD on 08/29/2019 6:26 AM Dictated By: TRAY FORMAN MD 5 Transcribed By: KORIN on 08/29/19625 COPY TO: PHILL TERRAZAS NP Lactic Acid Hxamg5620-50-25 05:33:00* Test Item Value Reference Range Interpretation Comments Lactic Acid Level (test code = Lactic Acid Level) 0.7 0.5- 2.0 [facility] CenterWhite Blood Slxgm8170-63-32 05:16:00* Test Item Value Reference Range Interpretation Comments White Blood Count (test code = 6690-2) 7.11 4.8-10.8 [facility] CenterRed Blood Pypai1453-09-25 05:16:00* Test Item Value Reference Range Interpretation Comments Red Blood Count (test code = 789-8) 3.69 3.6-5.1 [facility] CenterHemoglobin2020-03-12 05:16:00* Test Item Value Reference Range Interpretation Comments Hemoglobin (test code = 32896-8) 11.8 12.0-16.0 L [facility] CenterHematocrit2020-03-12 05:16:00* Test Item Value Reference Range Interpretation Comments Hematocrit (test code = 4544-3) 35.4 34.2-44.1 [facility] CenterMean Corpuscular Mfbzgc7706-16-27 05:16:00* Test Item Value Reference Range Interpretation Comments Mean Corpuscular Volume (test code = 787-2) 95.9 81-99 [facility] CenterMean Corpuscular Uszesskapm0853-16-82 05:16:00* Test Item Value Reference Range Interpretation Comments Mean Corpuscular Hemoglobin (test code = 785-6) 32.0 28-32 [facility] CenterMean Corpuscular Hemoglobin Concent 2019-08-29 05:16:00* Test Item Value Reference Range Interpretation Comments Mean Corpuscular Hemoglobin Concent (test code = 786-4) 33.3 31-35 [facility] CenterRed Cell Distribution Zydog0637-24-31 05:16:00* Test Item Value Reference Range Interpretation Comments Red Cell Distribution Width (test code = 24253-6) 13.1 11.7 -14.4 [facility] CenterPlatelet Veucv2615-38-17 05:16:00* Test Item Value Reference Range Interpretation Comments Platelet Count (test code = 777-3) 250 140-360 [facility] CenterNeutrophils (%) (Auto)2019-08-29 05:16:00 * Test Item Value Reference Range Interpretation Comments Neutrophils (%) (Auto) (test code = 27953-8) 38.4 38.7-80.0 L [facility] CenterLymphocytes (%) (Auto)2019-08-29 05:16:00 * Test Item Value Reference Range Interpretation Comments Lymphocytes (%) (Auto) (test code = 736-9) 47.3 18.0-39.1 H [facility] CenterMonocytes (%) (Auto)2019-08-29 05:16:00* Test Item Value Reference Range Interpretation Comments Monocytes (%) (Auto) (test code = 5905-5) 8.6 4.4-11.3 [facility] CenterEosinophils (%) (Auto)2019-08-29 05:16:00 * Test Item Value Reference Range Interpretation Comments Eosinophils (%) (Auto) (test code = 713-8) 4.5 0.0-6.0 [facility] CenterBasophils (%) (Auto)2019-08-29 05:16:00* Test Item Value Reference Range Interpretation Comments Basophils (%) (Auto) (test code = 706-2) 1.1 0.0-1.0 H [facility] CenterIM GRANULOCYTES %2019-08-29 05:16:00* Test Item Value Reference Range Interpretation Comments IM GRANULOCYTES % (test code = IM GRANULOCYTES %) 0.1 0.0- 1.0 [facility] CenterNeutrophils # (Auto)2019-08-29 05:16:00* Test Item Value Reference Range Interpretation Comments Neutrophils # (Auto) (test code = 751-8) 2.7 2.1-6.9 [facility] CenterLymphocytes # (Auto)2019-08-29 05:16:00* Test Item Value Reference Range Interpretation Comments Lymphocytes # (Auto) (test code = 69584-6) 3.4 1.0-3.2 H [facility] CenterMonocytes # (Auto)2019-08-29 05:16:00* Test Item Value Reference Range Interpretation Comments Monocytes # (Auto) (test code = 742-7) 0.6 0.2-0.8 [facility] CenterEosinophils # (Auto)2019-08-29 05:16:00* Test Item Value Reference Range Interpretation Comments Eosinophils # (Auto) (test code = 711-2) 0.3 0.0-0.4 [facility] CenterBasophils # (Auto)2019-08-29 05:16:00* Test Item Value Reference Range Interpretation Comments Basophils # (Auto) (test code = 704-7) 0.1 0.0-0.1 [facility] CenterAbsolute Immature Granulocyte (auto 2019-08-29 05:16:00* Test Item Value Reference Range Interpretation Comments Absolute Immature Granulocyte (auto (chava t code = Absolute Immature Granulocyte (auto) 0.01 0-0.1 [facility] CenterHAND 3+ VIEWS UZXFQ7025-29-05 19:44:00 [address] [address] Patient Name: ZACARIAS JAIME MR #: [id number] : 1970 Age/Sex: 49/F Req #: [id number] Adm Physician: JORDI POON MD Ordered by: PHILL TERRAZAS NP Report #: [id number] Location: [facility] Room/Bed: [address] [address] Procedure: 80 DX/HAND 3+ VIEWS RIGHT Exam Date: Exam Time: REPORT STATUS: Signed Hand Complete CPT code: 84233 Indication:Cat bite, hand swelling. Technique: Three views of the right hand obtained Comparison: None. Findings: Distal radius and ulna appear intact. Carpal bones appear generally well al igned. The digits are intact and normal in morphology. Soft tissues: No air or radiopaque foreign body in the soft tissues. IMPRESSION: No foreign bodies in the soft tissues, subcutaneous emphysema, or osseous injury. Signed by: Dr. Nathan Newsome MD on 08/28/2019 7:45 PM Dictated By: KHAN MD 1 945 Transcribed By: KORIN on 08/28/19 1945 COPY TO: PHILL TERRAZAS NP Urine [id number] 19:06:00* Test Item Value Reference Range Interpretation Comments Urine WBC (test code = 5821-4) 6-10 0-5 H [facility] CenterUrine [id number] 19:06:00* Test Item Value Reference Range Interpretation Comments Urine RBC (test code = 65983-5) 0-5 0-5 [facility] CenterUrine Zkuojsjz5961-67-48 19:06:00* Test Item Value Reference Range Interpretation Comments Urine Bacteria (test code = 33459-7) MODERATE NONE H [facility] CenterUrine Epithelial Sdrgp7209-47-51 19:06:00 * Test Item Value Reference Range Interpretation Comments Urine Epithelial Cells (test code = 72636-1) MANY NONE [facility] CenterTotal Aajegsebp4470-47-09 18:52:00* Test Item Value Reference Range Interpretation Comments Total Bilirubin (test code = 1975-2) 0.2 0.2-1.2 [facility] CenterAspartate Amino Transf (AST/SGOT) 2019-08-28 18:52:00* Test Item Value Reference Range Interpretation Comments Aspartate Amino Transf (AST/SGOT) (test code = Aspartate Amino Transf (AST/SGOT)) 20 5-34 [facility] CenterAlanine Aminotransferase (ALT/SGPT) 2019-08-28 18:52:00* Test Item Value Reference Range Interpretation Comments Alanine Aminotransferase (ALT/SGPT) (test code = 1742-6) 15 0-55 [facility] CenterTotal Mqmtafi6258-00-81 18:52:00* Test Item Value Reference Range Interpretation Comments Total Protein (test code = 2885-2) 6.9 6.5-8.1 [facility] CenterAlbumin2020-03-11 18:52:00* Test Item Value Reference Range Interpretation Comments Albumin (test code = 1751-7) 4.0 3.5-5.0 [facility] CenterGlobulin2020-03-11 18:52:00* Test Item Value Reference Range Interpretation Comments Globulin (test code = 27789-1) 2.9 2.3-3.5 [facility] CenterAlbumin/Globulin Ikeel6755-41-29 18:52:00 * Test Item Value Reference Range Interpretation Comments Albumin/Globulin Ratio (test code = 1759-0) 1.4 0.8-2.0 [facility] CenterAlkaline Crtsjincyew0670-36-46 18:52:00* Test Item Value Reference Range Interpretation Comments Alkaline Phosphatase (test code = 6768-6) 82 40-150 [facility] CenterProthrombin Wffx1813-22-24 18:32:00* Test Item Value Reference Range Interpretation Comments Prothrombin Time (test code = 5902-2) 11.9 11.9-14.5 [facility] CenterProthromb Time International Ratio 2019-08-28 18:32:00* Test Item Value Reference Range Interpretation Comments Prothromb Time International Ratio (test code = 6301-6) 0.83 Oral Anticoagulant Therapy INR Values:1. Low Intensity Therapy 1.5 - 2.02 . Moderate Intensity Therapy 2.0 - 3.03. High Intensity Therapy(1) 2.5 - 3. 54. High Intensity Therapy(2) 3.0 - 4.05. Panic Value INR > 5.0 [facility] CenterActivated Partial Thromboplast Time 2019-08-28 18:32:00* Test Item Value Reference Range Interpretation Comments Activated Partial Thromboplast Time (test code = 59043-2) 35.4 23.8-35.5 [facility] CenterHuman Chorionic Gonadotropin, Qual 2019-08-28 18:27:00* Test Item Value Reference Range Interpretation Comments Human Chorionic Gonadotropin, Qual (test code = 2118-8) NEGATIVE NEGATIVE [facility] CenterUrine [id number] 18:13:00* Test Item Value Reference Range Interpretation Comments Urine Color (test code = 5778-6) YELLOW YELLOW [facility] CenterUrine Ehvhobz5839-67-49 18:13:00* Test Item Value Reference Range Interpretation Comments Urine Clarity (test code = 22162-3) SL CLOUDY CLEAR [facility] CenterUrine Specific Kizxvdd3457-74-26 18:13:00 * Test Item Value Reference Range Interpretation Comments Urine Specific Osgood (test code = 5811-5) 1.025 1.010-1.02 5 [facility] CenterUrine [id number] 18:13:00* Test Item Value Reference Range Interpretation Comments Urine pH (test code = 85294-3) 7.5 5-7 [facility] CenterUrine Leukocyte Ykuehpqk8016-12-89 18:13:00* Test Item Value Reference Range Interpretation Comments Urine Leukocyte Esterase (test code = 5799-2) NEGATIVE NEGATIVE [facility] CenterUrine Pmflptm9261-16-90 18:13:00* Test Item Value Reference Range Interpretation Comments Urine Nitrite (test code = 65706-9) NEGATIVE NEGATIVE [facility] CenterUrine Uqtowmp2736-44-06 18:13:00* Test Item Value Reference Range Interpretation Comments Urine Protein (test code = 5804-0) NEGATIVE NEGATIVE [facility] CenterUrine Glucose (UA)2019-08-28 18:13:00* Test Item Value Reference Range Interpretation Comments Urine Glucose (UA) (test code = 2349-9) NEGATIVE NEGATIVE [facility] CenterUrine Igdktie3282-04-02 18:13:00* Test Item Value Reference Range Interpretation Comments Urine Ketones (test code = 82861-8) NEGATIVE NEGATIVE [facility] CenterUrine Twsjgiebxsja7189-26-88 18:13:00* Test Item Value Reference Range Interpretation Comments Urine Urobilinogen (test code = 09753-4) 0.2 0.2-1 [facility] CenterUrine Lzuzlguwe2588-04-88 18:13:00* Test Item Value Reference Range Interpretation Comments Urine Bilirubin (test code = 1978-6) NEGATIVE NEGATIVE [facility] CenterUrine Umfaq4457-87-21 18:13:00* Test Item Value Reference Range Interpretation Comments Urine Blood (test code = 80258-5) NEGATIVE NEGATIVE [facility] CenterCHEST 2 [id number] 17:27:00 [facility] [address] [address] Patient Name: ZACARIAS JAIME MR #: [id number] : 1970 Age/Sex: 49/F Req #: [id number] Adm Physician: Ordered by: JORDAN STEPHENS MD Report #: [id number] Location: ER Room/Bed: Procedure: [id number] DX/ CHEST 2 VIEWS Exam Date: 08/28/19 Exam Time: 1710 REPORT STATUS: Signed EXAMINATION: CHEST 2 VIEWS INDICATION: Cat bite, left shoulder pain, left chest pain cp [id number] COMPARISON: None FINDINGS: PA and lateral views TUBES and LINES: None. LUNGS: Lungs are well inflated. There is no evidence of pneumonia or pulmonary edema. PLEURA: No pleu ral effusion or pneumothorax. HEART AND MEDIASTINUM: The cardiomediastinal silhouette is unremarkable.. BONES AND SOFT TISSUES: No focal osseous l esions. No evidence of subcutaneous emphysema. UPPER ABDOMEN: Unremarka ble. IMPRESSION: No acute thoracic abnormality. Signed by: Dr. Nathan Newsome MD on 08/28/2019 5:28 PM Dictated By: NATHAN NEWSOME MD 27 Transcribed By: KORIN on 08/28/191727 COPY TO: JORDAN STEPHENS MD SCR MAMM BILATERAL SHANIA CAD [id number] 08:35:49 - SCR MAMM BILATERAL SHANIA CAD DIGITALBILATERAL DIGITAL SCREENING MAMMOGRAM 3D/2D WITH CAD: 05/22/2019CLINICAL: Asymptomatic. Digital breast tomosynthesis was performed in addition to routine CC and MLO views. Current mammographic images were evaluated by either a [employer] M-Vu or a [employer] Image[employer]er CAD (computer aided detection system). Comparison is made to exams dated 04/13/2018 mammogram, 04/24/2015 mammogram, and 04/16/2014 mammogram - [facility]-. The tissue of both breasts is heterogeneously dense. This may lower the sensitivity of mammography. There is a biopsy clip in the left breast. No suspicious mass, architectural distortion, malignant type calcification, or lymph node abnormality detected. Breast architecture is stable compared to prior exams.IMPRESSION: BENIGNThere is no mammographic evidence of malignancy. Resume annual screening mammography in one year. Esdras Escobar M.D. ss/penrad:05/23/2019 08:35:49 Anodize Machine Operator: Michele BAÑUELOS, [facility]-FWletter sent: BIRADS 1-2 Normal Mammogram BI-RADS: 2 BenignBREAST STEREO CORE BIOPSY [id number] 12:10:14- BREAST STEREO CORE BIOPSY LEFTSTEREOTACTIC GUIDED BIOPSY LEFT BREAST WITH MARKING DEVICE INSERTED: 04/24/2018CLINICAL: Stereotactic biopsy, left breast. A stereotactic guided biopsy was performed for the asymmetry located in the left breast at 1 o'clock, 16 cm from the nipple. This was described on the previous mammography report. The skin was prepped in the usual manner. Local anesthetic was administered to the access site. The abnormality was approached from the medial aspect using an upright mammography unit. A biopsy needle was placed adjacent to the abnormality under computer guidance and confirmatory stereotactic mammography images were obtained to document needle placement. Once the needle was documented to be in the correct location, a specimen was obtained using an automated biopsy gun. A clip was inserted into the biopsy cavity. The specimen was sent to the laboratory for pathological analysis. IMPRESSION: STEREOTACTIC GUIDED BIOPSYStereotactic guided biopsy of the asymmetry in the left breast at 1 o'clock posterior depth was successful with no apparent post procedure complications. Waiting for pathology results. A final report will be issued when these become available. FINAL PATHOLOGY:Benign fibrocystic change. No atypia or carcinoma seen.RECOMMENDATION:Benign biopsy. Normal interval follow-up in 1 year is recommended for screening mammography.Esdras Escobar M.D. ss/:04/27/2018 12:10:14 Attending Technologist: Neelima BAÑUELOS, [facility]-FWImaging Technologist: Helen BAÑUELOS, [facility]-FWletter sent: Benign BiopsyBREAST STEREO CORE BIOPSY [id number] 12:10:14- BREAST STEREO CORE BIOPSY LEFTSTEREOTACTIC GUIDED BIOPSY LEFT BREAST WITH MARKING DEVICE INSERTED: 04/24/2018CLINICAL: Stereotactic biopsy, left breast. A stereotactic guided biopsy was performed for the asymmetry located in the left breast at 1 o'clock, 16 cm from the nipple. This was described on the previous mammography report. The skin was prepped in the usual manner. Local anesthetic was administered to the access site. The abnormality was approached from the medial aspect using an upright mammography unit. A biopsy needle was placed adjacent to the abnormality under computer guidance and confirmatory stereotactic mammography images were obtained to document needle placement. Once the needle was do cumented to be in the correct location, a specimen was obtained using an automat ed biopsy gun. A clip was inserted into the biopsy cavity. The specimen was se nt to the laboratory for pathological analysis. IMPRESSION: STEREOTACTIC GUIDED BIOPSYStereotactic guided biopsy of the asymmetry in the left breast at 1 o'darren ck posterior depth was successful with no apparent post procedure complications. Waiting for pathology results. A final report will be issued when these become available. FINAL PATHOLOGY:Benign fibrocystic change. No atypia or carcinoma seen.RECOMMENDATION:Benign biopsy. Normal interval follow-up in 1 year is vincent mmended for screening mammography.Esdras Escobar M.D. ss/:04/27/2018 12:10:1 4 Attending Technologist: Neelima BAÑUELOS, [facility]-Imaging Tech nologist: Helen BAÑUELOS, [facility]-letter sent: Benign Biop syDIAG MAMM BILATERAL SHANIA CAD [id number] 12:34:32 - DIAG MAMM BILATERAL SHANIA CAD DIGITALBILATERAL DIGITAL DIAGNOSTIC MAMMOGRAM 3D/2D WITH CAD: 04/13/2018CLINICAL: Diffuse pain, left breast. Digital breast tomosynthesis was performed in addition to routine CC and MLO views. Current mammographic images were evaluated by either a [employer] M-Vu or a [employer] Image[employer]er CAD (computer aided detection system). Comparison is made to exams dated 04/16/2014 mammogram and 04/24/2015 mammogram - [facility]-. The tissue of both breasts is heterogeneously dense which reduces sensitivity of mammogram. Focal asymmetry in the left upper outer quadrant, posterior depth, approximately 16 cm from the nipple, roughly measuring 33 mm. No suspicious mass, roxann ectural distortion, malignant type calcification, or lymph node abnormality dete cted in the right breast. SUSPICIOUS OF MALIGNANCYFocal asymmetry in the left u pper outer quadrant, posterior depth. Survey bilateral ultrasound to follow.- B REAST ULTRASOUND BILATERALULTRASOUND OF BOTH BREASTS: 04/13/2018Comparison is ma de to exams dated 04/16/2014 mammogram and 04/24/2015 [facility] Color flow and real-time ultrasound of both breasts were performe d. Collins scale images of the real-time examination were reviewed. The breast t issue has heterogenous background echotexture. Survey ultrasound demonstrates m ultiple bilateral simple cysts, benign. No sonographic abnormality in the left upper outer quadrant, posterior depth, to correlate for the mammographic finding . No axillary lymphadenopathy was seen.IMPRESSION: BENIGN - FOLLOW-UP RECOMMEND EDThere is no sonographic correlate for the mammographic focal asymmetry. Multi ple bilateral cysts are noted, benign. The focal asymmetry in the left upper ou ter quadrant, posterior depth, is more prominent than comparison mammogram. Fin dings represent low suspicion for malignancy, BI-RADS 4A. Stereotactic guided c ore biopsy is recommended at this time.Esdras Escobar M.D. ss/:03/20 12:34:32 Anodize Machine Operator: Ashley BAÑUELOS, [facility]-FWletter sent: BIRADS 4/5 Biopsy Mammogram BI-RADS: 4a Suspicious abnormalit y - low suspicion for malignancy Ultrasound BI-RADS: 2 BenignBREAST ULTRASOUND [id number] 12:34:32 - DIAG MAMM BILATERAL SHANIA CAD DIGITALBILATERAL DIGITAL DIAGNOSTIC MAMMOGRAM 3D/2D WITH CAD: 04/13/2018CLINICAL: Diffuse pain, left breast. Digital breast tomosynthesis was performed in addition to routine CC and MLO views. Current mammographic images were evaluated by either a [employer] M-Vu or a [employer] CAD (computer aided detection system). Comparison is made to exams dated 04/16/2014 mammogram and [facility] The tissue of both breasts is heterogeneously dense which reduces sensitivity of mammogram. Focal asymmetry in the left upper outer quadrant, posterior depth, approximately 16 cm from the nipple, roughly measuring 33 mm. No suspicious mass, architectural distortion, malignant type calcification, or lymph node abnormality detected in the right breast. SUSPICIOUS OF MALIGNANCYFocal asymmetry in the left upper outer quadrant, posterior depth. Survey bilateral ultrasound to follow.- BREAST ULTRASOUND BILATERALULTRASOUND OF BOTH BREASTS: 04/13/2018Comparison is made to exams dated 04/16/2014 mammogram and [facility] Color flow and real-time ultrasound of both breasts were performed. Collins scale images of the real-time examination were reviewed. The breast tissue has heterogenous background echotexture. Survey ultrasound demonstrates multiple bilateral simple cysts, benign. No sonographic abnormality in the left upper outer quadrant, posterior depth, to correlate for the mammographic finding. No axillary lymphadenopathy was seen.IMPRESSION: BENIGN - FOLLOW-UP RECOMMEND EDThere is no sonographic correlate for the mammographic focal asymmetry. Multi ple bilateral cysts are noted, benign. The focal asymmetry in the left upper ou ter quadrant, posterior depth, is more prominent than comparison mammogram. Fin dings represent low suspicion for malignancy, BI-RADS 4A. Stereotactic guided c ore biopsy is recommended at this time.Esdras Escobar M.D. ss/:03/20 12:34:32 Anodize Machine Operator: Ashley BAÑUELOS, [facility]-FWletter sent: BIRADS 4/5 Biopsy Mammogram BI-RADS: 4a Suspicious abnormalit y - low suspicion for malignancy Ultrasound BI-RADS: 2 BenignDIAG MAMM BILATERAL SHANIA CAD [id number] 12:34:32 - DIAG MAMM BILATERAL SHANIA CAD DIGITALBILATERAL DIGITAL DIAGNOSTIC MAMMOGRAM 3D/2D WITH CAD: 04/13/2018CLINICAL: Diffuse pain, left breast. Digital breast tomosynthesis was performed in addition to routine CC and MLO views. Current mammographic images were evaluated by either a [employer] M-Vu or a [employer] CAD (computer aided detection system). Comparison is made to exams dated 04/16/2014 mammogram and 04/24/2015 mammogram - [facility]-. The tissue of both breasts is heterogeneously dense which reduces sensitivity of mammogram. Focal asymmetry in the left upper outer quadrant, posterior depth, approximately 16 cm from the nipple, roughly measuring 33 mm. No suspicious mass, roxann ectural distortion, malignant type calcification, or lymph node abnormality dete cted in the right breast. SUSPICIOUS OF MALIGNANCYFocal asymmetry in the left u pper outer quadrant, posterior depth. Survey bilateral ultrasound to follow.- B REAST ULTRASOUND BILATERALULTRASOUND OF BOTH BREASTS: 04/13/2018Comparison is ma de to exams dated 04/16/2014 mammogram and 04/24/2015 [facility]ogram [facility] Color flow and real-time ultrasound of both breasts were performe d. Collins scale images of the real-time examination were reviewed. The breast t issue has heterogenous background echotexture. Survey ultrasound demonstrates m ultiple bilateral simple cysts, benign. No sonographic abnormality in the left upper outer quadrant, posterior depth, to correlate for the mammographic finding . No axillary lymphadenopathy was seen.IMPRESSION: BENIGN - FOLLOW-UP RECOMMEND EDThere is no sonographic correlate for the mammographic focal asymmetry. Multi ple bilateral cysts are noted, benign. The focal asymmetry in the left upper ou ter quadrant, posterior depth, is more prominent than comparison mammogram. Fin dings represent low suspicion for malignancy, BI-RADS 4A. Stereotactic guided c ore biopsy is recommended at this time.Esdras Escobar M.D. ss/:03/20 12:34:32 Anodize Machine Operator: Ashley BAÑUELOS, [facility]-FWletter sent: BIRADS 4/5 Biopsy Mammogram BI-RADS: 4a Suspicious abnormalit y - low suspicion for malignancy Ultrasound BI-RADS: 2 BenignBREAST ULTRASOUND [id number] 12:34:32 - DIAG MAMM BILATERAL SHANIA CAD DIGITALBILATERAL DIGITAL DIAGNOSTIC MAMMOGRAM 3D/2D WITH CAD: 04/13/2018CLINICAL: Diffuse pain, left breast. Digital breast tomosynthesis was performed in addition to routine CC and MLO views. Current mammographic images were evaluated by either a [employer] M-Vu or a [employer] Image[employer] CAD (computer aided detection system). Comparison is made to exams dated 04/16/2014 mammogram and 04/24/2015 mammogram - [facility]-. The tissue of both breasts is heterogeneously dense which reduces sensitivity of mammogram. Focal asymmetry in the left upper outer quadrant, posterior depth, approximately 16 cm from the nipple, roughly measuring 33 mm. No suspicious mass, architectural distortion, malignant type calcification, or lymph node abnormality detected in the right breast. SUSPICIOUS OF MALIGNANCYFocal asymmetry in the left upper outer quadrant, posterior depth. Survey bilateral ultrasound to follow.- BREAST ULTRASOUND BILATERALULTRASOUND OF BOTH BREASTS: 04/13/2018Comparison is made to exams dated 04/16/2014 mammogram and 04/24/2015 mammogram - [facility]-. Color flow and real-time ultrasound of both breasts were performed. Collins scale images of the real-time examination were reviewed. The breast tissue has heterogenous background echotexture. Survey ultrasound demonstrates multiple bilateral simple cysts, benign. No sonographic abnormality in the left upper outer quadrant, posterior depth, to correlate for the mammographic finding. No axillary lymphadenopathy was seen.IMPRESSION: BENIGN - FOLLOW-UP RECOMMEND EDThere is no sonographic correlate for the mammographic focal asymmetry. Multi ple bilateral cysts are noted, benign. The focal asymmetry in the left upper ou ter quadrant, posterior depth, is more prominent than comparison mammogram. Fin dings represent low suspicion for malignancy, BI-RADS 4A. Stereotactic guided c ore biopsy is recommended at this time.Esdras Escobar M.D. ss/:03/20 12:34:32 Anodize Machine Operator: Ashley BAÑUELOS, [facility]-FWletter sent: BIRADS 4/5 Biopsy Mammogram BI-RADS: 4a Suspicious abnormalit y - low suspicion for malignancy Ultrasound BI-RADS: 2 BenignMRI BRAIN WO 2018-02-08 09:39:00 [place] [address] Patient Name: ZACARIAS JAIME MR #: [id number] : 1970 Age/Sex: 48/F Req #: [id number] [facility] Physician: JOHN FLORES MD Ordered by: MITUL ONEILL M.D. Report #: [id number] Location: MED/SURG2 Room/Bed: [facility] Procedure: MRI/MRI BRAIN WO Exam Date: Exam Time: RE PORT STATUS: Signed EXAMINATION: MRI of the brain without contrast. H ISTORY: Globe while headache, sensitivity to light, migraine with aura versus a stroke. COMPARISON: Head CT on 02/07/2018 TECHNIQUE: Sagittal T2; axial DWI , T2, FLAIR, T1-IR, T2 gradient echo; coronal FLAIR. IMAGE QUALITY: [place] te. FINDINGS: Parenchyma: 1. A a few (about 5) bilateral fron nick white matter T12 and FLAIR hyperintense foci, [...] magnum: Unremarkable. Sella: Unremarkable. Paranasal / mastoid sinuse s: No significant inflammatory disease. IMPRESSION: 1. No acute or ch ronic infarcts. 2. Minimal white matter hyperintense foci as detailed above. Signed by: Dr. Rosa Lopes M.D. on 02/08/2018 9:43 AM Dictated By: Kassandra LOPES MD 2 Transc ribed By: KORIN on 02/08/18942 COPY TO: MITUL ONEILL MD Prothrombin [id number] 18:28:00* Test Item Value Reference Range Interpretation Comments Prothrombin Time (test code = 5902-2) 12.0 11.9-14.5 [facility] CenterProthromb Time International Ratio 2018-02-07 18:28:00* Test Item Value Reference Range Interpretation Comments Prothromb Time International Ratio (test code = 6301-6) 0.96 Oral Anticoagulant Therapy INR Values:1. Low Intensity Therapy 1.5 - 2.02 . Moderate Intensity Therapy 2.0 - 3.03. High Intensity Therapy(1) 2.5 - 3. 54. High Intensity Therapy(2) 3.0 - 4.05. Panic Value INR > 5.0 [facility] CenterActivated Partial Thromboplast Time 2018-02-07 18:28:00* Test Item Value Reference Range Interpretation Comments Activated Partial Thromboplast Time (test code = 33394-9) 32.2 23.8-35.5 [facility] CenterTriglycerides Aprdl4203-04-31 15:34:00* Test Item Value Reference Range Interpretation Comments Triglycerides Level (test code = 2571-8) 103 0-149 [facility] CenterCholesterol Kvukj1758-53-44 15:34:00* Test Item Value Reference Range Interpretation Comments Cholesterol Level (test code = 2093-3) 179 0-199 Less than 200 mg/dL Low Sfxu080 - 239 mg/dL Borderline Fcex017 m g/dl and greater High Risk [facility] CenterLDL Oihjzcxxhou9021-68-37 15:34:00* Test Item Value Reference Range Interpretation Comments LDL Cholesterol (test code = 2089-1) 95 60-130 [facility] CenterHDL Oomnvwuxsqq3115-87-55 15:34:00* Test Item Value Reference Range Interpretation Comments HDL Cholesterol (test code = 2085-9) 63 40-60 H [facility] CenterCholesterol/HDL Ucqhi0765-07-86 15:34:00 * Test Item Value Reference Range Interpretation Comments Cholesterol/HDL Ratio (test code = 9830-1) 2.8 3.0-3.6 L [facility] CenterCT BRAIN [id number] 10:53:00 [facility] [address] [address] Patient Name: ZACARIAS JAIME MR #: [id number] : 1970 Age/Sex: 48/F Req #: [id number] Adm Physician: Ordered by: REGINA SPIVEY MD Report #: [id number] Location: ER Room/B ed: Procedure: CT/CT BRAIN WO Exam Date: 0 02/07/18 Exam Time: 1015 REPORT STATUS: Signed EXAMINATION: Head CT without contrast HISTORY: Severe forehead headache s shayy the night before, dizziness COMPARISON: None. TECHNIQUE: Multidetector axial images were obtained without contrast from the foramen magnum to the ve rtex . The images were reconstructed using brain and bone algorithms. Thin se ction brain images were reformatted into coronal and [...] Ventricles: No hydrocephalus or displacement. Arteries: No dens ity suggestive of thrombus. Dural sinuses: No abnormal density. Extra-axial spaces: No abnormal density. Foramen magnum: No mass, Chiari malformation, or basilar invagination. Sella: No obvious mass. Paranasal/mastoid sinuses: Imaged portions unremarkable. Skull/Scalp: No lytic or blastic lesions. No fractures. IMPRESSION: Normal head CT. Signed by: Dr. Rosa Lopes M.D. on 02/07/2018 10:57 AM Dictated By: ROSA LOPES MD 1057 Tra nscribed By: KORIN on 02/07/18 1057 COPY TO: REGINA SPIVEY MD Creatine Kinase [id number] 10:50:00* Test Item Value Reference Range Interpretation Comments Creatine Kinase MB (test code = 72846-4) 1.50 0-5.0 [facility] CenterTroponin [id number] 10:50:00* Test Item Value Reference Range Interpretation Comments Troponin I (test code = PRV6082) -0.001 0-0.300 [facility] Taylorodium Tndor6364-93-58 10:43:00* Test Item Value Reference Range Interpretation Comments Sodium Level (test code = 2951-2) 134 136-145 L [facility] CenterPotassium Gzxps1014-40-68 10:43:00* Test Item Value Reference Range Interpretation Comments Potassium Level (test code = 2823-3) 4.0 3.5-5.1 [facility] CenterChloride Jexcj7279-64-51 10:43:00* Test Item Value Reference Range Interpretation Comments Chloride Level (test code = 2075-0) 101 98-107 [facility] CenterCarbon Dioxide Cvpfq7028-03-94 10:43:00* Test Item Value Reference Range Interpretation Comments Carbon Dioxide Level (test code = 2028-9) 22 - [facility] CenterAnion Fsp8395-73-33 10:43:00* Test Item Value Reference Range Interpretation Comments Anion Gap (test code = 12246-0) 15.0 8-16 [facility] CenterBlood Urea Dqbpzmsl8466-69-82 10:43:00* Test Item Value Reference Range Interpretation Comments Blood Urea Nitrogen (test code = 3094-0) 13 7-26 [facility] CenterCreatinine2018-08-22 10:43:00* Test Item Value Reference Range Interpretation Comments Creatinine (test code = 2160-0) 0.72 0.57-1.11 [facility] CenterBUN/Creatinine Idzlu4920-94-82 10:43:00* Test Item Value Reference Range Interpretation Comments BUN/Creatinine Ratio (test code = 3097-3) 18 6-25 [facility] CenterEstimat Glomerular Filtration Rate 2018-02-07 10:43:00* Test Item Value Reference Range Interpretation Comments Estimat Glomerular Filtration Rate (test code = 02864-5) 60- >60 Ranges were taken from the National Kidney Disease Education Program and the [facility] Kid[facility] Foundation literature.Reference ranges:60 or greater: Wxlilo07-01 ( for 3 consecutive months): Chronic kidney disease 15 or less: Kidney failureShannon Medical CenterGlucose Swowz6599-57-68 10:43:00* Test Item Value Reference Range Interpretation Comments Glucose Level (test code = LAL8707) 110 74-118 [facility] CenterCalcium Fwrfi3990-87-87 10:43:00* Test Item Value Reference Range Interpretation Comments Calcium Level (test code = 63080-8) 8.8 8.4-10.2 [facility] CenterTotal Rxssyxtby5473-16-52 10:43:00* Test Item Value Reference Range Interpretation Comments Total Bilirubin (test code = 1975-2) 0.3 0.2-1.2 [facility] CenterAspartate Amino Transf (AST/SGOT) 2018-02-07 10:43:00* Test Item Value Reference Range Interpretation Comments Aspartate Amino Transf (AST/SGOT) (test code = Aspartate Amino Transf (AST/SGOT)) 20 5-34 [facility] CenterAlanine Aminotransferase (ALT/SGPT) 2018-02-07 10:43:00* Test Item Value Reference Range Interpretation Comments Alanine Aminotransferase (ALT/SGPT) (test code = 1742-6) 21 0-55 [facility] CenterTotal Mmwskhg9953-59-02 10:43:00* Test Item Value Reference Range Interpretation Comments Total Protein (test code = 2885-2) 6.8 6.5-8.1 [facility] CenterAlbumin2018-08-22 10:43:00* Test Item Value Reference Range Interpretation Comments Albumin (test code = 1751-7) 3.7 3.5-5.0 [facility] CenterGlobulin2018-08-22 10:43:00* Test Item Value Reference Range Interpretation Comments Globulin (test code = 96209-8) 3.1 2.3-3.5 [facility] CenterAlbumin/Globulin Lfcia3051-37-80 10:43:00 * Test Item Value Reference Range Interpretation Comments Albumin/Globulin Ratio (test code = 1759-0) 1.2 0.8-2.0 [facility] CenterAlkaline Bvyoacbdfdu0606-48-18 10:43:00* Test Item Value Reference Range Interpretation Comments Alkaline Phosphatase (test code = 6768-6) 89 40-150 [facility] CenterCreatine Mfgmkz7402-79-50 10:43:00* Test Item Value Reference Range Interpretation Comments Creatine Kinase (test code = 2157-6) 140 29-168 [facility] CenterHuman Chorionic Gonadotropin, Qual 2018-02-07 10:33:00* Test Item Value Reference Range Interpretation Comments Human Chorionic Gonadotropin, Qual (test code = 2118-8) NEGATIVE NEGATIVE [facility] CenterWhite Blood Qaqrf3374-83-76 10:29:00* Test Item Value Reference Range Interpretation Comments White Blood Count (test code = 6690-2) 9.50 4.8-10.8 [facility] CenterRed Blood Awjyx8035-81-82 10:29:00* Test Item Value Reference Range Interpretation Comments Red Blood Count (test code = 789-8) 4.21 3.6-5.1 [facility] CenterHemoglobin2018-08-22 10:29:00* Test Item Value Reference Range Interpretation Comments Hemoglobin (test code = 38818-4) 13.5 12.0-16.0 [facility] CenterHematocrit2018-08-22 10:29:00* Test Item Value Reference Range Interpretation Comments Hematocrit (test code = 4544-3) 39.4 34.2-44.1 [facility] CenterMean Corpuscular Yazhad0273-07-62 10:29:00* Test Item Value Reference Range Interpretation Comments Mean Corpuscular Volume (test code = 787-2) 93.6 81-99 [facility] CenterMean Corpuscular Kvciyuzvdg0689-84-86 10:29:00* Test Item Value Reference Range Interpretation Comments Mean Corpuscular Hemoglobin (test code = 785-6) 32.1 28-32 H [facility] CenterMean Corpuscular Hemoglobin Concent 2018-02-07 10:29:00* Test Item Value Reference Range Interpretation Comments Mean Corpuscular Hemoglobin Concent (test code = 786-4) 34.3 31-35 [facility] CenterRed Cell Distribution Haolx7614-23-59 10:29:00* Test Item Value Reference Range Interpretation Comments Red Cell Distribution Width (test code = 24317-4) 13.2 11.7 -14.4 [facility] CenterPlatelet Envrv7347-16-07 10:29:00* Test Item Value Reference Range Interpretation Comments Platelet Count (test code = 777-3) 247 140-360 [facility] CenterNeutrophils (%) (Auto)2018-02-07 10:29:00 * Test Item Value Reference Range Interpretation Comments Neutrophils (%) (Auto) (test code = 68496-8) 68.8 38.7-80.0 [facility] CenterLymphocytes (%) (Auto)2018-02-07 10:29:00 * Test Item Value Reference Range Interpretation Comments Lymphocytes (%) (Auto) (test code = 736-9) 21.8 18.0-39.1 [facility] CenterMonocytes (%) (Auto)2018-02-07 10:29:00* Test Item Value Reference Range Interpretation Comments Monocytes (%) (Auto) (test code = 5905-5) 6.1 4.4-11.3 [facility] CenterEosinophils (%) (Auto)2018-02-07 10:29:00 * Test Item Value Reference Range Interpretation Comments Eosinophils (%) (Auto) (test code = 713-8) 2.4 0.0-6.0 [facility] CenterBasophils (%) (Auto)2018-02-07 10:29:00* Test Item Value Reference Range Interpretation Comments Basophils (%) (Auto) (test code = 706-2) 0.7 0.0-1.0 [facility] CenterIM GRANULOCYTES %2018-02-07 10:29:00* Test Item Value Reference Range Interpretation Comments IM GRANULOCYTES % (test code = IM GRANULOCYTES %) 0.2 0.0- 1.0 [facility] CenterNeutrophils # (Auto)2018-02-07 10:29:00* Test Item Value Reference Range Interpretation Comments Neutrophils # (Auto) (test code = 751-8) 6.5 2.1-6.9 [facility] CenterLymphocytes # (Auto)2018-02-07 10:29:00* Test Item Value Reference Range Interpretation Comments Lymphocytes # (Auto) (test code = 19666-7) 2.1 1.0-3.2 [facility] CenterMonocytes # (Auto)2018-02-07 10:29:00* Test Item Value Reference Range Interpretation Comments Monocytes # (Auto) (test code = 742-7) 0.6 0.2-0.8 [facility] CenterEosinophils # (Auto)2018-02-07 10:29:00* Test Item Value Reference Range Interpretation Comments Eosinophils # (Auto) (test code = 711-2) 0.2 0.0-0.4 [facility] CenterBasophils # (Auto)2018-02-07 10:29:00* Test Item Value Reference Range Interpretation Comments Basophils # (Auto) (test code = 704-7) 0.1 0.0-0.1 [facility] CenterAbsolute Immature Granulocyte (auto 2018-02-07 10:29:00* Test Item Value Reference Range Interpretation Comments Absolute Immature Granulocyte (auto (chava t code = Absolute Immature Granulocyte (auto) 0.02 0-0.1 [facility] CenterANKLE 3 + VIEWS RIGHT [facility] [address] [address] Patient Name: ZACARIAS JAIME MR #: [id number] : 1970 Age/Sex: 47/F Req #: [id number] Adm Physician: Ordered by: KAPIL ALFARO CLINICAL NURSING PROFESSOR Report #: [id number] Location: ER Room/Bed: Procedure: [id number] DX/ANKLE 3 + VIEWS RIGHT E xam Date: Exam Time: REPORT STATUS: Signed PROCEDURE: X-RAY RIGHT ANKLE, COMPLETE INDICATION: Ankle pain COMPARISO N: None. FINDINGS: Normal mineralization. No acute displaced fracture or dislocation. Ankle mortise is preserved. No lytic or blastic lesion. No o steochondral lesion. Mild soft tissue swelling around the ankle. CON CLUSION: Mild soft tissue swelling around the ankle, without underlying bony abnormalities. Emery Mackenzie M.D. Dictated by: Emery Mackenzie M.D. on 11/16/2017 at 18:14 Electronically approved by: Emery Mackenzie M.D. on 11/16/2017 at 18:14 Dictated By: MEERY MACKENZIE MD 13 Transcribed By: [place] on 11/16/171813 COPY TO: KAPIL ALFARO CLINICAL NURSING PROFESSOR FOOT RIGHT COMPLETE [place] [address] Patient Name: ZACARIAS JAIME MR #: [id number] : 1970 Age/Sex: 47/F Req #: [id number] Adm Physician: Ordered by: KAPIL ALFARO NP Report #: [id number] Location: ER Room/Bed: Procedure: [id number] DX/FOOT RIGHT COMPLETE Exa m Date: 11/16/17 Exam Time: 1710 REPORT STATUS: Signed PROCEDURE: X-RAY RIGHT FOOT, COMPLETE COMPARISON: None. INDICATIONS: FOOT TWISTED WHEN WALKING FINDINGS: Normal minerali zation. No acute, displaced fracture or dislocation. Joint spaces are preserve d. No lytic or blastic lesions. Soft tissues are unremarkable. CONC LUSION: No acute abnormalities. Emery Mackenzie M.D. Dictated by: Emery Mackenzie M.D. on 11/16/2017 at 18:15 Electronically approv ed by: Emery Mackenzie M.D. on 11/16/2017 at 18:15 Dictated By: EMERY MACKENZIE MD 14 Transcribed By: J[place] on 11/16/171814 COPY TO: KAPIL ALFARO
--- OUTSIDE RECORDS SUMMARY | 2020-01-28 14:16 | XMS REPORT | Summary of Care ---
Author Author [facility] Organization [facility] Address Unknown Phone Unavailable Care Team Providers Care Data Capture Specialist Name Role Phone Pedro Saez MD PCP [phone] Reason for Visit * Reason Comments Follow Up Encounter Details Care Team Description Date Type Department Jesus Mayberry MD Follow Up 11/19/2019 Office Visit [facility] Orthopedic Surgery [address], [place] [address] Allergies Comments Active Allergy Reactions Severity Noted Date Codeine 03/22/2017 Penicillins 03/22/2017 documented as of this encounter (statuses as of 11/20/2019) Medications End Date Status Medication Sig Dispensed Refills Start Date Active fluoxetine (PROZAC) 20 MG TAKE 2 2 02/17 capsule CAPSULES BY 7 MOUTH EVERY DAY Active ibuprofen (MOTRIN) 200 mg Take 200 mg 0 tablet by mouth every 6 hours as needed for Pain. Active meloxicam (MOBIC) 7.5 MG TAKE 1 TABLET 30 Tab 1 tablet BY MOUTH 8 EVERY DAY Active alprazolam (XANAX) 0.5 MG TAKE ONE HALF 0 02/17 tablet TABLETS BY 9 MOUTH EVERY DAY FOR PANIC ONLY. CAREFUL DRIVING. -- NEEDED Active oxcarbazepine (TRILEPTAL) TAKE TWO TO 0 01/18 600 MG tablet THREE TABLETS 9 BY MOUTH EVERY NIGHT AT BEDTIME. Active oxybutynin (DITROPAN XL) Bedtime 0 5 MG CR tablet Active busPIRone (BUSPAR) 10 MG TAKE 1/2 1 0 11/11 tablet TABLET BY 0 MOUTH 2 3 TIMES A DAY Active clindamycin (CLEOCIN) 300 TAKE 1 0 08/17 MG capsule CAPSULE BY 0 MOUTH EVERY 8 HOURS Active duloxetine (CYMBALTA) 60 TAKE TWO 0 11/04 MG capsule CAPSULES BY 0 MOUTH EVERY MORNING . TAKE WITH FOOD. Active levofloxacin (LEVAQUIN) TAKE 1 TABLET 0 500 MG tablet BY MOUTH 0 EVERY DAY Active Ttwwsexeq-Mctonhxn-JH TAKE 10 ML BY 0 09/17/19 2 30-2-10 MG/5ML SYRP MOUTH EVERY 6 0 8 HOURS NEEDED Active trazodone (DESYREL) 50 MG TAKE ONE HALF 0 08/18 tablet TO TWO 0 TABLETS BY MOUTH EVERY NIGHT AT BEDTIME FOR INSOMNIA NEEDED 11/19/2019 Discontinued ketorolac (TORADOL) 10 MG Take 1 Tab by 12 Tab 0 tablet mouth every 4 7 hours as needed for Pain. No more than 3 days 11/19/2019 Discontinued cyclobenzaprine TAKE 1 TABLET 60 Tab 3 06/16/20 1 (FLEXERIL) 10 MG tablet BY MOUTH 7 TWICE A DAY NEEDED FOR MUSCLE SPASMS 11/19/2019 Discontinued atorvastatin (LIPITOR) 20 TAKE 1 TABLET 0 08/0 /201 MG tablet BY MOUTH 9 EVERY DAY Status Hospital, Clinic, or Ordered Dose Route Frequency Start End Date Other Facility Date Administered Medication Ended betamethasone IX ONCE 11/19/19 acetate-betamethasone 20 0 sodium phosphate (CELESTONE) 6 (3-3) MG/ML, lidocaine 1% (10 mg/mL)Indications: Intractable right heel pain documented as of this encounter (statuses as of 11/20/2019) Active Problems Problem Noted Date Intractable right heel pain 11/19/2019 documented as of this encounter (statuses as of 11/20/2019) Social History Date Tobacco Use Types Packs/Day Years Used Current Every Day Smoker 1 30 Smokeless Tobacco: Never Used Comments: 25-30 years Drinks/Week oz/Week Comments Alcohol Use Rarely Yes Sex Assigned at Date Recorded Not on file Industry Job Start Date Occupation Not on file Not on file Not on file Travel End Travel History Travel Start No recent travel history available. Date Recorded COVID-19 Exposure Response 11/19/2019 12:45 PM CDT In the last month, have you been in contact with No / Unsure someone who was confirmed or suspected to have Coronavirus / COVID-19? documented as of this encounter Last Filed Vital Signs Not on filedocumented in this encounter Progress Notes * Nahun Powers MD - 11/19/2019 1:00 PM CDT Orthopedic Surgery Clinic Note S: Cara Buenrostro is a 49 y.o. female who returns to clinic for f/u of right he el pain and plantar fasciitis. She last received injection back in March which she said helped quite a bit. She is still smoking. She also complains of pain a long the medial aspect of her foot. O: There were no vitals taken for this visit. Gen: NAD MSK: R foot/ankle - Swelling about medial aspect of ankle - Pes planovalgus deformity - TTP along posterior tibialis tendon and plantar fascia - NVI otherwis A/P: Cara Buenrostro is a 49 y.o. female with right plantar fasciitis and PTTI - Repeat CSI to plantar fascia (see procedure note below). - Lace up ankle brace given - Will consider MRI in future to assess posterior tibialis tendon - RTC 1-2 months - Seen/discussed with Dr. Mayberry PROCEDURE NOTE - Trigger point CSI We have discussed the pros and cons of a steroid injection. We have discussed th e possiblity of fat atrophy. The patient understands these issues and requested the injection. 1 cc (6mg) of celestone and 2 cc of 2%Xylocaine without Epi was injected into th e Subfascial region of the right plantar heel. There was a good effect from the local anesthetic and there were no immediate co mplications. We discussed the usual timing on the cortisone. The full effect may take 2 weeks and there may be a brief increase in pain after the xylocaine wears off. I have recommended to the patient to continue stretching. Discussed Plantar fascia release Discussed PTTI Nahun Powers MD Orthopedic Surgery, PGY-4 I have seen and evaluated this patient along with Dr. Nahun Powers. I have discuss ed the history, physical exam findings and we have discussed objective data. I h ave examined the patient as well. I agree with the residents findings and plan a s documented and have edited the note as needed. Jesus Mayberry MD [employer] Inspector [facility] Department of Orthopedic Surgery documented in this encounter Plan of Treatment Order Schedule Name Type Priority Associated Diag noses Ordered: 11/19/2019 ORT - XR ANKLE RIGHT 3V [place] Charge Routine Right ankle pain, (CHARGE ONLY) unspecified chronicity Ordered: 11/19/2019 NJ AFO ANKLE GAUNTLET PRE [place] Charge Routine Righ t ankle pain, OTS unspecified chronicity Health Maintenance Due Date Last Done Comments MAMMOGRAM ANNUAL 1970 TETANUS SHOT (ADULT) 1985 BMI FOLLOW UP PLAN 01/08/1988 HIV SCREENING 01/08/1988 CERVICAL CANCER SCREENING 1991 3 YEAR FOLLOW UP FLU VACCINE > 6 MONTHS 01/18/2020 documented as of this encounter Results * XR ANKLE RIGHT 3 VIEWS (COMPLETE) (11/19/2019 1:40 PM CDT) Specimen Narrative Performed At For result, please reference physician' s note on the corresponding date. documented in this encounter Visit Diagnoses Diagnosis Right ankle pain, unspecified chronicit y - Primary Intractable right heel pain Pain in limb documented in this encounter Administered Medications Action Date Dose Rate Site Medication Order MAR Action 11/19/2019 1:23 PM CDT Right He el betamethasone acetate-betamethasone Given by sodium phosphate (CELESTONE) 6 (3-3) MG/ML, lidocaine 1% (10 mg/mL) Intra-articular, ONCE, 1 dose, 11/19/19 at 1330 documented in this encounter Insurance Type Payer Benefit Subscriber ID Effective Phone Address Plan / Dates Group [facility] xxxxxxxxxx 2016-P [address] [facility] [place] [id number] [place] [address] documented as of this encounter
[2020-01-28 14:23] LABS: BILIRUBIN,URINE NEGATIVE (NEGATIVE); CLARITY,URINE SL CLOUDY (CLEAR); COLOR,URINE STRAW (YELLOW); KETONES,URINE NEGATIVE (NEGATIVE); LEUKOCYTE ESTERASE ,URINE NEGATIVE (NEGATIVE); NITRITE,URINE NEGATIVE (NEGATIVE); PROTEIN,URINE DIPSTICK NEGATIVE (NEGATIVE); URINE UROBILINOGEN 0.2 mg/dL (0.2 - 1)
[2020-01-28 14:35] LABS: BACTERIA,URINE MODERATE /HPF; EPITHELIAL CELLS,URINE MODERATE /LPF
--- NOTE | 2020-01-28 14:38 | Diagnostic Imaging Report ---
EXAM: CT Abdomen and Pelvis WITHOUT intravenous contrast INDICATION: Right flank pain COMPARISON: Report of CT abdomen and pelvis of 05/27/2016 (images not available for comparison) TECHNIQUE: Abdomen and pelvis were scanned utilizing a multidetector helical scanner from the lung base to the pubic symphysis without administration of IV contrast. Coronal and sagittal reformations were obtained. IV CONTRAST: None ORAL CONTRAST: None COMPLICATIONS: None RADIATION DOSE: Total DLP: 822 mGy*cm Dose modulation, iterative reconstruction, and/or weight based adjustment of the mA/kV was utilized to reduce the radiation dose to as low as reasonably achievable. FINDINGS: LOWER THORAX: Normal. HEPATOBILIARY: No focal liver lesions. Unremarkable gallbladder. SPLEEN: No splenomegaly. PANCREAS: No focal masses or ductal dilatation. ADRENALS: Low-density 1.7 cm right adrenal nodule consistent with benign adenoma. No further follow-up imaging is necessary. No left adrenal nodule. KIDNEYS/URETERS: 2 mm and 3 mm right upper pole nonobstructive renal calculi. No hydronephrosis or hydroureter. No left urinary calculi. PELVIC ORGANS/BLADDER: Unremarkable. PERITONEUM / RETROPERITONEUM: No free air or fluid. LYMPH NODES: No lymphadenopathy. VESSELS: Mild scattered atherosclerotic calcifications of the nonaneurysmal abdominal aorta and major branches. GI TRACT: No abnormal bowel thickening. No bowel obstruction. Normal appendix. Postoperative findings of sleeve gastrectomy. BONES AND SOFT TISSUES: No acute osseous injury. No suspicious lytic or blastic lesions. IMPRESSION: 2 and 3 mm right upper pole nonobstructive renal calculi, no hydronephrosis or hydroureter. 1.7 cm benign right adrenal adenoma. Signed by: Geovanny Graf MD on 01/28/2020 2:34 PM
[2020-01-28 14:40] LABS: ALANINE AMINOTRANSFERASE 18 IU/L (0-55); ALBUMIN 4.2 g/dL (3.5-5.0); ALBUMIN/GLOBULIN RATIO 1.4 (0.8-2.0); ALKALINE PHOSPHATASE 75 IU/L (40-150); ANION GAP 11.4 mmol/L (8-16); BLOOD UREA NITROGEN 10 mg/dL (7-26); BUN/CREATININE RATIO 13 (6-25); CALCIUM 9.4 mg/dL (8.4-10.2); CARBON DIOXIDE 25 mmol/L (22-29); CHLORIDE 103 mmol/L (98-107); CREATININE, SERUM 0.76 mg/dL (0.57-1.11); EST GLOMERULAR FILTRATION RATE > 60 ML/MIN (60-); GLUCOSE 85 mg/dL (74-118); POTASSIUM 4.4 mmol/L (3.5-5.1); SODIUM 135 mmol/L (136-145)
[2020-01-28 15:27] VITALS: BP 121/64
== END 2020-01-28 15:31 | disposition home or self-care (01) ==
LOC: ER 14:13
DX: N20.0 Calculus of kidney (principal); M54.5 Low back pain; R10.9 Unspecified abdominal pain; E78.5 Hyperlipidemia, unspecified; F41.9 Anxiety disorder, unspecified; F17.210 Nicotine dependence, cigarettes, uncomplicated; Z98.84 Bariatric surgery status
CPT/HCPCS: 36415; 74176; 80053; 81001; 85025; 99284; J1885; J2405; J3010; J7030

== ENCOUNTER 2020-04-13 15:52 | Observation (INO) | payer OTHER ==
[~2020-04-13] VITALS: Ht 160 cm; Wt 105.8 kg
[2020-04-13] MEDS ORDERED: KETOROLAC TROMETHAMINE 30 MG/ML VIAL IV STA (16:14)
[2020-04-13] MEDS ORDERED: DIAZEPAM 5 MG TAB PO PRN (16:15)
[2020-04-13] MEDS ORDERED: HYDROCODONE/APAP 5MG-325MG TAB PO ONE (16:15)
[2020-04-13 16:30] LABS: BASOPHILS # (AUTO) 0.1 (0.0-0.1); EOSINOPHILS # (AUTO) 0.2 (0.0-0.4); EOSINOPHILS % 3.8 % (0.0-6.0); HEMATOCRIT 39.2 % (34.2-44.1); LYMPHOCYTES # (AUTO) 2.6 (1.0-3.2); LYMPHOCYTES % 41.9 % (18.0-39.1); MEAN CORPUSCULAR HEMOGLOBIN 30.4 pg (28-32); MEAN CORPUSCULAR HGB CONC 33.2 g/dL (31-35); MEAN CORPUSCULAR VOLUME 91.8 fL (81-99); MONOCYTES # (AUTO) 0.6 (0.2-0.8); MONOCYTES % 9.4 % (4.4-11.3); NEUTROPHILS # (AUTO) 2.7 (2.1-6.9); NEUTROPHILS % 43.7 % (38.7-80.0); PLATELET COUNT 263 x10e3/uL (140-360); RED BLOOD COUNT 4.27 x10e6/uL (3.6-5.1); RED CELL DISTRIBUTION WIDTH 13.9 % (11.7-14.4)
[2020-04-13 16:52] LABS: CREATINE KINASE MB < 1.00 ng/mL (0-4.3)
[2020-04-13 16:54] LABS: ALANINE AMINOTRANSFERASE 16 IU/L (0-55); ALBUMIN/GLOBULIN RATIO 1.4 (0.8-2.0); ALKALINE PHOSPHATASE 79 IU/L (40-150); ANION GAP 14.3 mmol/L (8-16); BLOOD UREA NITROGEN 14 mg/dL (7-26); BUN/CREATININE RATIO 20 (6-25); CALCIUM 8.9 mg/dL (8.4-10.2); CARBON DIOXIDE 23 mmol/L (22-29); CHLORIDE 96 mmol/L (98-107); CREATINE KINASE 65 IU/L (29-168); CREATININE, SERUM 0.71 mg/dL (0.57-1.11); EST GLOMERULAR FILTRATION RATE > 60 ML/MIN (60-); GLUCOSE 91 mg/dL (74-118); POTASSIUM 4.3 mmol/L (3.5-5.1); SODIUM 129 mmol/L (136-145)
[2020-04-13] MEDS ORDERED: SODIUM CHLORIDE 0.9% 1000ML 1,000 ML IV STA (17:29)
[2020-04-13 20:00] VITALS: BP 121/63
[2020-04-13] MEDS ORDERED: TRAZODONE HCL50 MG PO (20:33)
[2020-04-13] MEDS ORDERED: TRAZODONE HCL 50 MG TAB PO SCH (20:45)
[2020-04-13] MEDS ORDERED: ONDANSETRON HCL INJ 2MG/ML 2ML 2 MG/ML VIAL IV PRN (20:45)
[2020-04-13] MEDS ORDERED: NITROGLYCERIN 0.4 MG SUBL SL PRN (20:45)
[2020-04-13 21:00] VITALS: BP 121/63
[2020-04-13] MEDS: OXCARBAZEPINE 300 MG TAB PO SCH ×2 (21:00→22:37)
[2020-04-13] MEDS: MORPHINE SULFATE 2 MG/ML SYR 1ML IV PRN (21:22)
[2020-04-13] MEDS: NICOTINE 21 MG/EA PATCH TOP SCH (21:25)
[2020-04-13] MEDS ORDERED: ASPIRIN 81 MG CHEW TAB PO ONE (21:30)
[2020-04-13] MEDS: SODIUM CHLORIDE 0.9% 1000ML 1,000 ML IV SCH (21:35)
[2020-04-13] MEDS: ASPIRIN 81 MG CHEW TAB PO ONE ×2 (21:35→21:39)
[2020-04-13] MEDS: ALPRAZOLAM 0.5 MG TAB PO PRN (22:37)
[2020-04-14] VITALS: BP 127/62
[2020-04-14 01:22] LABS: CREATINE KINASE 48 IU/L (29-168)
[2020-04-14 04:00] VITALS: BP 124/66
[2020-04-14] MEDS: SODIUM CHLORIDE 0.9% 1000ML 1,000 ML IV SCH (04:45)
[2020-04-14] MEDS: MORPHINE SULFATE 2 MG/ML SYR 1ML IV PRN (04:58)
[2020-04-14 06:02] LABS: BASOPHILS # (AUTO) 0.1 (0.0-0.1); BASOPHILS % 1.3 % (0.0-1.0); EOSINOPHILS # (AUTO) 0.3 (0.0-0.4); EOSINOPHILS % 4.4 % (0.0-6.0); HEMOGLOBIN 11.6 g/dL (12.0-16.0); LYMPHOCYTES # (AUTO) 3.2 (1.0-3.2); LYMPHOCYTES % 52.9 % (18.0-39.1); MEAN CORPUSCULAR HEMOGLOBIN 31.7 pg (28-32); MEAN CORPUSCULAR HGB CONC 34.1 g/dL (31-35); MEAN CORPUSCULAR VOLUME 92.9 fL (81-99); MONOCYTES # (AUTO) 0.5 (0.2-0.8); MONOCYTES % 8.1 % (4.4-11.3); PLATELET COUNT 221 x10e3/uL (140-360); RED BLOOD COUNT 3.66 x10e6/uL (3.6-5.1); RED CELL DISTRIBUTION WIDTH 13.6 % (11.7-14.4)
[2020-04-14 06:29] LABS: ANION GAP 10.4 mmol/L (8-16); BLOOD UREA NITROGEN 15 mg/dL (7-26); BUN/CREATININE RATIO 23 (6-25); CALCIUM 8.1 mg/dL (8.4-10.2); CARBON DIOXIDE 24 mmol/L (22-29); CHLORIDE 101 mmol/L (98-107); CHOL/HDL RATIO 4.2 (3.0-3.6); CHOLESTEROL 212 MD/DL (0-199); CREATININE, SERUM 0.65 mg/dL (0.57-1.11); EST GLOMERULAR FILTRATION RATE > 60 ML/MIN (60-); GLUCOSE 89 mg/dL (74-118); HDL CHOLESTEROL 51 MG/DL (40-60); LDL CHOLESTEROL 142 MG/DL (60-130); POTASSIUM 4.4 mmol/L (3.5-5.1); SODIUM 131 mmol/L (136-145); TRIGLYCERIDES 97 MG/DL (0-149)
[2020-04-14] MEDS: NICOTINE 21 MG/EA PATCH TOP SCH (08:17)
[2020-04-14] MEDS: DULOXETINE HCL 30 MG DELAYED RELEASE PO SCH ×3 (08:17→16:55)
[2020-04-14 09:10] VITALS: BP 124/66
[2020-04-14 09:37] LABS: CREATINE KINASE 47 IU/L (29-168)
[2020-04-14 09:51] VITALS: BP 157/77
[2020-04-14 12:13] VITALS: BP 137/70
[2020-04-14 13:04] LABS: CREATINE KINASE MB < 1.00 ng/mL (0-4.3)
[2020-04-14] MEDS ORDERED: REGADENOSON 0.4 MG/5 ML SYR IV ONE (13:57)
[2020-04-14 16:09] VITALS: BP 139/78
[2020-04-14] MEDS: ALPRAZOLAM 0.5 MG TAB PO PRN (16:49)
[2020-04-14] MEDS ORDERED: NITROSTAT0.4 MG SL (19:06)
== END 2020-04-14 19:56 | disposition home or self-care (01) ==
LOC: ER 16:25 → ERHOLD 17:31 → MED/SURG2 19:07
PROVIDERS: ADMIT Internal Medicine; ATTEND Internal Medicine
DX: R07.9 Chest pain, unspecified (principal); E78.5 Hyperlipidemia, unspecified; E66.01 Morbid (severe) obesity due to excess calories; Z68.41 Body mass index [BMI] 40.0-44.9, adult; I25.10 Atherosclerotic heart disease of native coronary artery without angina pectoris; F17.210 Nicotine dependence, cigarettes, uncomplicated; Z98.84 Bariatric surgery status; Z82.49 Family history of ischemic heart disease and other diseases of the circulatory system; Z87.442 Personal history of urinary calculi; Z88.0 Allergy status to penicillin; F32.9 Major depressive disorder, single episode, unspecified; E87.1 Hypo-osmolality and hyponatremia; F41.9 Anxiety disorder, unspecified; Z11.59 Encounter for screening for other viral diseases; K21.9 Gastro-esophageal reflux disease without esophagitis
CPT/HCPCS: 36415 ×2; 71045; 78452; 80048; 80053; 80061; 82550 ×2; 82553 ×2; 84484 ×2; 85025 ×2; 85379; 93005; 93017; 93306; 99284; A9502; G0378 ×2; J1885; J2270 ×2; J2785; J7030 ×2; U0002

== ENCOUNTER 2020-05-27 15:21 | Inpatient (IN) | payer OTHER ==
[~2020-05-27] VITALS: Ht 160 cm; Wt 105.7 kg
[~2020-05-27 15:21] MED LIST changes: +NITROSTAT0.4 MG SL; +TRAZODONE HCL50 MG PO
[2020-05-27] MEDS ORDERED: SODIUM CHLORIDE 0.9% 1000ML 1,000 ML IV STA (15:33)
[2020-05-27] MEDS ORDERED: MORPHINE SULFATE 2 MG/ML SYR 1ML IV STA ×2 (15:33→16:21)
[2020-05-27] MEDS ORDERED: ONDANSETRON HCL INJ 2MG/ML 2ML 2 MG/ML VIAL IV PRN (15:45)
[2020-05-27 16:01] LABS: BASOPHILS # (AUTO) 0.1 (0.0-0.1); BASOPHILS % 0.9 % (0.0-1.0); EOSINOPHILS # (AUTO) 0.2 (0.0-0.4); EOSINOPHILS % 2.5 % (0.0-6.0); HEMATOCRIT 39.6 % (34.2-44.1); HEMOGLOBIN 13.6 g/dL (12.0-16.0); LYMPHOCYTES # (AUTO) 2.8 (1.0-3.2); LYMPHOCYTES % 35.1 % (18.0-39.1); MEAN CORPUSCULAR HEMOGLOBIN 30.4 pg (28-32); MEAN CORPUSCULAR HGB CONC 34.3 g/dL (31-35); MEAN CORPUSCULAR VOLUME 88.4 fL (81-99); MONOCYTES # (AUTO) 0.9 (0.2-0.8); MONOCYTES % 10.9 % (4.4-11.3); NEUTROPHILS # (AUTO) 4.1 (2.1-6.9); NEUTROPHILS % 50.2 % (38.7-80.0); PLATELET COUNT 352 x10e3/uL (140-360); RED BLOOD COUNT 4.48 x10e6/uL (3.6-5.1); RED CELL DISTRIBUTION WIDTH 13.4 % (11.7-14.4)
[2020-05-27 16:04] LABS: CLARITY,URINE SL CLOUDY (CLEAR); COLOR,URINE YELLOW (YELLOW); KETONES,URINE NEGATIVE (NEGATIVE); LEUKOCYTE ESTERASE ,URINE NEGATIVE (NEGATIVE); NITRITE,URINE NEGATIVE (NEGATIVE); PROTEIN,URINE DIPSTICK NEGATIVE (NEGATIVE); URINE UROBILINOGEN 0.2 mg/dL (0.2 - 1)
[2020-05-27 16:20] LABS: ALANINE AMINOTRANSFERASE 17 IU/L (0-55); ALBUMIN 4.1 g/dL (3.5-5.0); ALBUMIN/GLOBULIN RATIO 1.4 (0.8-2.0); ALKALINE PHOSPHATASE 81 IU/L (40-150); ANION GAP 11.2 mmol/L (8-16); BLOOD UREA NITROGEN 10 mg/dL (7-26); BUN/CREATININE RATIO 14 (6-25); CALCIUM 9.3 mg/dL (8.4-10.2); CARBON DIOXIDE 27 mmol/L (22-29); CHLORIDE 96 mmol/L (98-107); CREATININE, SERUM 0.71 mg/dL (0.57-1.11); EST GLOMERULAR FILTRATION RATE > 60 ML/MIN (60-); GLUCOSE 79 mg/dL (74-118); LIPASE 176 U/L (8-78); POTASSIUM 4.2 mmol/L (3.5-5.1); SODIUM 130 mmol/L (136-145)
[2020-05-27 16:25] LABS: BACTERIA,URINE MODERATE /HPF; EPITHELIAL CELLS,URINE FEW /LPF
[2020-05-27] MEDS ORDERED: IOPAMIDOL 370 MG/ML 200 ML INFUS..BTL INJ ONE (16:52)
[2020-05-27] MEDS ORDERED: SODIUM CHLORIDE 0.9% 50ML 50 ML ONE (16:52)
[2020-05-27] MEDS ORDERED: KETOROLAC TROMETHAMINE 30 MG/ML VIAL IV STA (17:48)
[2020-05-27] MEDS ORDERED: MORPHINE SULFATE 2 MG/ML SYR 1ML IV PRN (18:00)
[2020-05-27] MEDS: SODIUM CHLORIDE 0.9% 1000ML 1,000 ML IV SCH (18:11)
[2020-05-27] MEDS: CIPROFLOXACIN 400 MG/D5W 200ML 200 ML IV SCH (18:11)
[2020-05-27] MEDS ORDERED: HYDRALAZINE HCL 20 MG/ML VIAL IV PRN (19:30)
[2020-05-27] MEDS ORDERED: NITROGLYCERIN 0.4 MG SUBL SL PRN (20:15)
[2020-05-27 20:16] VITALS: BP 132/66
[2020-05-27] MEDS: MORPHINE SULFATE INJ 4 MG/ML INJ 1ML IV PRN (20:49)
[2020-05-27] MEDS: MELATONIN 5 MG TABLET PO SCH (20:49)
[2020-05-27] MEDS: TRAZODONE HCL 50 MG TAB PO SCH (21:00)
[2020-05-27] MEDS: ONDANSETRON HCL INJ 2MG/ML 2ML 2 MG/ML VIAL IV PRN (21:07)
[2020-05-27] MEDS: ALPRAZOLAM 0.5 MG TAB PO PRN (21:33)
[2020-05-27] MEDS: OXCARBAZEPINE 300 MG TAB PO SCH (21:33)
[2020-05-27 21:38] VITALS: BP 105/56
[2020-05-28] VITALS (8 sets, daily range): BP systolic 93–143; BP diastolic 47–72
[2020-05-28] MEDS: SODIUM CHLORIDE 0.9% 1000ML 1,000 ML IV SCH ×3 (04:05→17:27)
[2020-05-28 05:53] LABS: BASOPHILS # (AUTO) 0.1 (0.0-0.1); EOSINOPHILS # (AUTO) 0.2 (0.0-0.4); EOSINOPHILS % 3.5 % (0.0-6.0); HEMATOCRIT 36.7 % (34.2-44.1); HEMOGLOBIN 12.3 g/dL (12.0-16.0); LYMPHOCYTES # (AUTO) 2.9 (1.0-3.2); LYMPHOCYTES % 41.2 % (18.0-39.1); MEAN CORPUSCULAR HEMOGLOBIN 30.6 pg (28-32); MEAN CORPUSCULAR HGB CONC 33.5 g/dL (31-35); MEAN CORPUSCULAR VOLUME 91.3 fL (81-99); MONOCYTES # (AUTO) 0.6 (0.2-0.8); MONOCYTES % 8.6 % (4.4-11.3); NEUTROPHILS # (AUTO) 3.2 (2.1-6.9); NEUTROPHILS % 45.4 % (38.7-80.0); PLATELET COUNT 299 x10e3/uL (140-360); RED BLOOD COUNT 4.02 x10e6/uL (3.6-5.1); RED CELL DISTRIBUTION WIDTH 13.3 % (11.7-14.4)
[2020-05-28] MEDS: CIPROFLOXACIN 400 MG/D5W 200ML 200 ML IV SCH ×2 (06:00→17:27)
[2020-05-28 06:25] LABS: ALANINE AMINOTRANSFERASE 15 IU/L (0-55); ALBUMIN 3.5 g/dL (3.5-5.0); ALBUMIN/GLOBULIN RATIO 1.4 (0.8-2.0); ALKALINE PHOSPHATASE 66 IU/L (40-150); ANION GAP 9.5 mmol/L (8-16); BLOOD UREA NITROGEN 11 mg/dL (7-26); BUN/CREATININE RATIO 17 (6-25); CALCIUM 8.1 mg/dL (8.4-10.2); CARBON DIOXIDE 26 mmol/L (22-29); CHLORIDE 100 mmol/L (98-107); CREATININE, SERUM 0.66 mg/dL (0.57-1.11); EST GLOMERULAR FILTRATION RATE > 60 ML/MIN (60-); GLUCOSE 85 mg/dL (74-118); POTASSIUM 4.5 mmol/L (3.5-5.1); SODIUM 131 mmol/L (136-145)
[2020-05-28 06:45] LABS: MAGNESIUM 1.8 MG/DL (1.3-2.1); PHOSPHORUS 4.3 MG/DL (2.3-4.7)
[2020-05-28 07:49] LABS: THYROID STIMULATING HORMONE 2.272 uIU/mL (0.350-4.940)
[2020-05-28] MEDS: ONDANSETRON HCL INJ 2MG/ML 2ML 2 MG/ML VIAL IV PRN ×4 (08:53→21:27)
[2020-05-28] MEDS: MORPHINE SULFATE INJ 4 MG/ML INJ 1ML IV PRN ×4 (08:53→21:27)
[2020-05-28] MEDS: FAMOTIDINE 20 MG/2 ML VIAL IV SCH ×2 (09:07→17:27)
[2020-05-28] MEDS: NICOTINE 21 MG/EA PATCH TOP SCH (09:07)
[2020-05-28] MEDS: DULOXETINE HCL 30 MG DELAYED RELEASE PO SCH (09:07)
[2020-05-28] MEDS: OXCARBAZEPINE 300 MG TAB PO SCH (20:43)
[2020-05-28] MEDS: TRAZODONE HCL 50 MG TAB PO SCH (20:43)
[2020-05-28] MEDS: ALPRAZOLAM 0.5 MG TAB PO PRN (20:43)
[2020-05-28] MEDS: MELATONIN 5 MG TABLET PO SCH (20:43)
[2020-05-29] VITALS (8 sets, daily range): BP systolic 122–138; BP diastolic 56–70
[2020-05-29] MEDS: SODIUM CHLORIDE 0.9% 1000ML 1,000 ML IV SCH ×4 (00:03→23:38)
[2020-05-29] MEDS: ONDANSETRON HCL INJ 2MG/ML 2ML 2 MG/ML VIAL IV PRN ×5 (02:27→23:38)
[2020-05-29] MEDS: MORPHINE SULFATE INJ 4 MG/ML INJ 1ML IV PRN ×5 (02:27→23:38)
[2020-05-29] MEDS: CIPROFLOXACIN 400 MG/D5W 200ML 200 ML IV SCH (06:30)
[2020-05-29 06:37] LABS: ANION GAP 7.9 mmol/L (8-16); BLOOD UREA NITROGEN 7 mg/dL (7-26); BUN/CREATININE RATIO 12 (6-25); CALCIUM 7.9 mg/dL (8.4-10.2); CARBON DIOXIDE 26 mmol/L (22-29); CHLORIDE 101 mmol/L (98-107); CREATININE, SERUM 0.59 mg/dL (0.57-1.11); EST GLOMERULAR FILTRATION RATE > 60 ML/MIN (60-); GLUCOSE 78 mg/dL (74-118); POTASSIUM 3.9 mmol/L (3.5-5.1); SODIUM 131 mmol/L (136-145)
[2020-05-29 07:25] LABS: BASOPHILS # (AUTO) 0.1 (0.0-0.1); BASOPHILS % 0.8 % (0.0-1.0); EOSINOPHILS # (AUTO) 0.3 (0.0-0.4); EOSINOPHILS % 3.6 % (0.0-6.0); HEMATOCRIT 33.7 % (34.2-44.1); LYMPHOCYTES # (AUTO) 3.1 (1.0-3.2); LYMPHOCYTES % 42.1 % (18.0-39.1); MEAN CORPUSCULAR HEMOGLOBIN 30.5 pg (28-32); MEAN CORPUSCULAR HGB CONC 33.5 g/dL (31-35); MEAN CORPUSCULAR VOLUME 90.8 fL (81-99); MONOCYTES # (AUTO) 0.7 (0.2-0.8); MONOCYTES % 9.2 % (4.4-11.3); NEUTROPHILS # (AUTO) 3.2 (2.1-6.9); NEUTROPHILS % 44.2 % (38.7-80.0); PLATELET COUNT 274 x10e3/uL (140-360); RED BLOOD COUNT 3.71 x10e6/uL (3.6-5.1); RED CELL DISTRIBUTION WIDTH 13.2 % (11.7-14.4)
[2020-05-29 07:28] LABS: HEMOGLOBIN 11.3 g/dL (12.0-16.0)
[2020-05-29] MEDS: NICOTINE 21 MG/EA PATCH TOP SCH (09:00)
[2020-05-29] MEDS: DULOXETINE HCL 30 MG DELAYED RELEASE PO SCH (09:00)
[2020-05-29] MEDS: FAMOTIDINE 20 MG/2 ML VIAL IV SCH ×2 (09:00→17:00)
[2020-05-29] MEDS ORDERED: ACETAMINOPHEN 325 MG TAB PO PRN (09:30)
[2020-05-29] MEDS: HYDROCODONE/APAP 5MG-325MG TAB PO PRN (13:36)
[2020-05-29] MEDS ORDERED: MORPHINE SULFATE 2 MG/ML SYR 1ML IV PRN (14:30)
[2020-05-29] MEDS ORDERED: ACETAMIN/BUTALBITAL/CAFFEINE TAB PO ONE (14:30)
[2020-05-29 18:18] LABS: CLARITY,URINE SL CLOUDY (CLEAR); COLOR,URINE YELLOW (YELLOW); KETONES,URINE NEGATIVE (NEGATIVE); LEUKOCYTE ESTERASE ,URINE NEGATIVE (NEGATIVE); NITRITE,URINE POSITIVE (NEGATIVE); PROTEIN,URINE DIPSTICK NEGATIVE (NEGATIVE); URINE UROBILINOGEN 0.2 mg/dL (0.2 - 1)
[2020-05-29 18:30] LABS: BACTERIA,URINE MODERATE /HPF; EPITHELIAL CELLS,URINE FEW /LPF; RBC,URINE 0-5 /HPF (0-5)
[2020-05-29] MEDS: TRAZODONE HCL 50 MG TAB PO SCH (20:48)
[2020-05-29] MEDS: MELATONIN 5 MG TABLET PO SCH (20:50)
[2020-05-29] MEDS: OXCARBAZEPINE 300 MG TAB PO SCH (20:52)
[2020-05-30] VITALS (8 sets, daily range): BP systolic 115–135; BP diastolic 61–73
[2020-05-30 06:21] LABS: BASOPHILS # (AUTO) 0.1 (0.0-0.1); EOSINOPHILS # (AUTO) 0.2 (0.0-0.4); HEMATOCRIT 32.2 % (34.2-44.1); HEMOGLOBIN 10.7 g/dL (12.0-16.0); LYMPHOCYTES # (AUTO) 2.7 (1.0-3.2); LYMPHOCYTES % 46.7 % (18.0-39.1); MEAN CORPUSCULAR HEMOGLOBIN 30.2 pg (28-32); MEAN CORPUSCULAR HGB CONC 33.2 g/dL (31-35); MONOCYTES # (AUTO) 0.6 (0.2-0.8); MONOCYTES % 9.7 % (4.4-11.3); NEUTROPHILS # (AUTO) 2.2 (2.1-6.9); NEUTROPHILS % 38.4 % (38.7-80.0); PLATELET COUNT 273 x10e3/uL (140-360); RED BLOOD COUNT 3.54 x10e6/uL (3.6-5.1); RED CELL DISTRIBUTION WIDTH 13.2 % (11.7-14.4)
[2020-05-30 06:53] LABS: ANION GAP 6.9 mmol/L (8-16); BLOOD UREA NITROGEN 6 mg/dL (7-26); BUN/CREATININE RATIO 10 (6-25); CALCIUM 7.8 mg/dL (8.4-10.2); CARBON DIOXIDE 27 mmol/L (22-29); CHLORIDE 101 mmol/L (98-107); CREATININE, SERUM 0.61 mg/dL (0.57-1.11); EST GLOMERULAR FILTRATION RATE > 60 ML/MIN (60-); GLUCOSE 82 mg/dL (74-118); MAGNESIUM 1.5 MG/DL (1.3-2.1); PHOSPHORUS 3.8 MG/DL (2.3-4.7); POTASSIUM 3.9 mmol/L (3.5-5.1); SODIUM 131 mmol/L (136-145)
[2020-05-30] MEDS: SODIUM CHLORIDE 0.9% 1000ML 1,000 ML IV SCH ×2 (07:06→10:00)
[2020-05-30] MEDS ORDERED: MAGNESIUM SULFATE 2GM/50ML 50 ML IV ONE (08:15)
[2020-05-30] MEDS ORDERED: MAGNESIUM SULF 1GRAM/DEXTROSE 100 ML IV ONE (08:15)
[2020-05-30] MEDS: FAMOTIDINE 20 MG/2 ML VIAL IV SCH ×2 (09:00→17:00)
[2020-05-30] MEDS: DULOXETINE HCL 30 MG DELAYED RELEASE PO SCH (09:00)
[2020-05-30] MEDS: NICOTINE 21 MG/EA PATCH TOP SCH (09:00)
[2020-05-30 09:27] LABS: ANION GAP 9.5 mmol/L (8-16); BLOOD UREA NITROGEN 5 mg/dL (7-26); BUN/CREATININE RATIO 8 (6-25); CARBON DIOXIDE 24 mmol/L (22-29); CHLORIDE 101 mmol/L (98-107); CREATININE, SERUM 0.62 mg/dL (0.57-1.11); EST GLOMERULAR FILTRATION RATE > 60 ML/MIN (60-); GLUCOSE 83 mg/dL (74-118); POTASSIUM 4.5 mmol/L (3.5-5.1); SODIUM 130 mmol/L (136-145)
[2020-05-30 09:29] LABS: BLOOD UREA NITROGEN 5 mg/dL (7-26); GLUCOSE 82 mg/dL (74-118); OSMOLALITY,SERUM 259 mOsm/kg (278-305); SODIUM 131 mmol/L (136-145)
[2020-05-30] MEDS: HYDROCODONE/APAP 5MG-325MG TAB PO PRN ×3 (10:00→21:57)
[2020-05-30] MEDS: SODIUM CHLORIDE 1 GM TAB PO SCH ×3 (10:45→20:40)
[2020-05-30] MEDS: ACETAMIN/BUTALBITAL/CAFFEINE TAB PO PRN (13:55)
[2020-05-30] MEDS: MORPHINE SULFATE INJ 4 MG/ML INJ 1ML IV PRN (17:55)
[2020-05-30] MEDS: OXCARBAZEPINE 300 MG TAB PO SCH (20:35)
[2020-05-30] MEDS: MELATONIN 5 MG TABLET PO SCH (20:37)
[2020-05-30] MEDS ORDERED: MICONAZOLE NITRATE 45 GM CR VG SCH (23:00)
[2020-05-31] VITALS: BP 117/58
[2020-05-31 04:00] VITALS: BP 132/65
[2020-05-31] MEDS: ACETAMIN/BUTALBITAL/CAFFEINE TAB PO PRN ×3 (05:30→15:42)
[2020-05-31 05:58] LABS: BASOPHILS # (AUTO) 0.1 (0.0-0.1); BASOPHILS % 1.1 % (0.0-1.0); EOSINOPHILS # (AUTO) 0.2 (0.0-0.4); EOSINOPHILS % 4.4 % (0.0-6.0); HEMOGLOBIN 11.1 g/dL (12.0-16.0); LYMPHOCYTES # (AUTO) 2.3 (1.0-3.2); LYMPHOCYTES % 42.3 % (18.0-39.1); MEAN CORPUSCULAR HEMOGLOBIN 30.6 pg (28-32); MEAN CORPUSCULAR HGB CONC 33.6 g/dL (31-35); MEAN CORPUSCULAR VOLUME 90.9 fL (81-99); MONOCYTES # (AUTO) 0.5 (0.2-0.8); MONOCYTES % 9.7 % (4.4-11.3); NEUTROPHILS # (AUTO) 2.3 (2.1-6.9); NEUTROPHILS % 42.1 % (38.7-80.0); PLATELET COUNT 267 x10e3/uL (140-360); RED BLOOD COUNT 3.63 x10e6/uL (3.6-5.1); RED CELL DISTRIBUTION WIDTH 13.1 % (11.7-14.4); RETICULOCYTE % 1.8 % (0.8-2.2)
[2020-05-31] MEDS: HYDROCODONE/APAP 5MG-325MG TAB PO PRN ×4 (06:08→18:00)
[2020-05-31 06:20] LABS: BLOOD UREA NITROGEN 8 mg/dL (7-26); GLUCOSE 89 mg/dL (74-118); OSMOLALITY,SERUM 260 mOsm/kg (278-305); SODIUM 131 mmol/L (136-145)
[2020-05-31 06:28] LABS: ANION GAP 9.2 mmol/L (8-16); BLOOD UREA NITROGEN 8 mg/dL (7-26); BUN/CREATININE RATIO 13 (6-25); CARBON DIOXIDE 26 mmol/L (22-29); CHLORIDE 101 mmol/L (98-107); CREATININE, SERUM 0.62 mg/dL (0.57-1.11); EST GLOMERULAR FILTRATION RATE > 60 ML/MIN (60-); GLUCOSE 90 mg/dL (74-118); POTASSIUM 4.2 mmol/L (3.5-5.1); SODIUM 132 mmol/L (136-145)
[2020-05-31 08:10] VITALS: BP 122/58
[2020-05-31] MEDS: DULOXETINE HCL 30 MG DELAYED RELEASE PO SCH (08:48)
[2020-05-31] MEDS: NICOTINE 21 MG/EA PATCH TOP SCH (08:48)
[2020-05-31] MEDS: FAMOTIDINE 20 MG/2 ML VIAL IV SCH ×2 (08:48→17:00)
[2020-05-31] MEDS: SODIUM CHLORIDE 1 GM TAB PO SCH ×2 (08:48→15:00)
[2020-05-31] MEDS ORDERED: IRON SUCROSE 100 MG in SODIUM CHLORIDE 0.9% 100 ML 100 ML IV SCH (09:30)
[2020-05-31 11:28] LABS: FERRITIN 11.86 ng/mL (4.63-204.00)
[2020-05-31 12:02] VITALS: BP 135/65
[2020-05-31 15:54] VITALS: BP 134/62
[2020-05-31] MEDS ORDERED: SODIUM CHLORIDE1 GM PO (18:12)
[2020-05-31] MEDS ORDERED: Acetamin/Butalbital/Caffeine PO (18:12)
[2020-05-31] MEDS ORDERED: MICONAZOLE NITR45 GM VG (18:12)
[2020-05-31] MEDS ORDERED: TYLENOL # 31 EA PO (18:55)
== END 2020-05-31 21:04 | disposition home or self-care (01) | DRG 694 ==
LOC: ER 15:33 → ERHOLD 17:48 → MED/SURG 20:23 → OBSVTOIN 05-29 14:48
PROVIDERS: ADMIT Internal Medicine; ATTEND Internal Medicine
DX: N13.2 Hydronephrosis with renal and ureteral calculous obstruction (principal); Z68.41 Body mass index [BMI] 40.0-44.9, adult; E22.2 Syndrome of inappropriate secretion of antidiuretic hormone; B37.49 Other urogenital candidiasis; F17.210 Nicotine dependence, cigarettes, uncomplicated; E78.5 Hyperlipidemia, unspecified; E66.01 Morbid (severe) obesity due to excess calories; G47.00 Insomnia, unspecified; F41.9 Anxiety disorder, unspecified; D50.9 Iron deficiency anemia, unspecified; K21.9 Gastro-esophageal reflux disease without esophagitis; E83.42 Hypomagnesemia; Z20.828 Contact with and (suspected) exposure to other viral communicable diseases; Z88.0 Allergy status to penicillin; Z98.84 Bariatric surgery status; Z82.49 Family history of ischemic heart disease and other diseases of the circulatory system; E86.0 Dehydration; R51.0 Headache with orthostatic component, not elsewhere classified; E27.8 Other specified disorders of adrenal gland
CPT/HCPCS: 36415; 74018; 74177; 76770; 80048; 80053; 81001; 82607; 82728; 82746; 82947; 83036; 83540; 83690; 83735; 83935; 84100; 84295; 84300; 84443; 84466; 84520; 84702; 85025; 85045; 87086; 99284; G0378; J1756; J1885; J2270; J2405; J3475; J7030; Q9967; U0002

== ENCOUNTER 2020-10-01 00:48 | Emergency (ER) | payer OTHER ==
[~2020-10-01] VITALS: Ht 160 cm; Wt 105.7 kg
[~2020-10-01 00:48] MED LIST changes: +Acetamin/Butalbital/Caffeine PO; +MICONAZOLE NITR45 GM VG; +SODIUM CHLORIDE1 GM PO; +TYLENOL # 31 EA PO
[2020-10-01 01:19] LABS: BASOPHILS # (AUTO) 0.1 (0.0-0.1); BASOPHILS % 0.9 % (0.0-1.0); EOSINOPHILS # (AUTO) 0.3 (0.0-0.4); EOSINOPHILS % 2.9 % (0.0-6.0); HEMATOCRIT 38.4 % (34.2-44.1); HEMOGLOBIN 13.7 g/dL (12.0-16.0); LYMPHOCYTES % 29.3 % (18.0-39.1); MEAN CORPUSCULAR HEMOGLOBIN 31.4 pg (28-32); MEAN CORPUSCULAR HGB CONC 35.7 g/dL (31-35); MEAN CORPUSCULAR VOLUME 88.1 fL (81-99); MONOCYTES % 9.8 % (4.4-11.3); NEUTROPHILS # (AUTO) 5.9 (2.1-6.9); NEUTROPHILS % 56.7 % (38.7-80.0); PLATELET COUNT 327 x10e3/uL (140-360); RED BLOOD COUNT 4.36 x10e6/uL (3.6-5.1); RED CELL DISTRIBUTION WIDTH 13.3 % (11.7-14.4)
[2020-10-01 01:41] LABS: ALANINE AMINOTRANSFERASE 18 IU/L (0-55); ALBUMIN/GLOBULIN RATIO 1.3 (0.8-2.0); ALKALINE PHOSPHATASE 80 IU/L (40-150); ANION GAP 13.2 mmol/L (8-16); BLOOD UREA NITROGEN 11 mg/dL (7-26); BUN/CREATININE RATIO 16 (6-25); CALCIUM 8.9 mg/dL (8.4-10.2); CARBON DIOXIDE 23 mmol/L (22-29); CHLORIDE 96 mmol/L (98-107); CREATININE, SERUM 0.68 mg/dL (0.57-1.11); EST GLOMERULAR FILTRATION RATE > 60 ML/MIN (60-); GLUCOSE 85 mg/dL (74-118); POTASSIUM 4.2 mmol/L (3.5-5.1); SODIUM 128 mmol/L (136-145)
== END 2020-10-01 02:00 | disposition home or self-care (01) ==
LOC: ER 01:37
DX: R07.9 Chest pain, unspecified (principal); F41.9 Anxiety disorder, unspecified; E78.5 Hyperlipidemia, unspecified; Z87.442 Personal history of urinary calculi; Z98.84 Bariatric surgery status
CPT/HCPCS: 36415; 71045; 80053; 83690; 84484; 85025; 93005; 99284

== ENCOUNTER 2020-11-01 09:32 | Emergency (ER) | payer OTHER ==
[~2020-11-01] VITALS: Ht 160 cm; Wt 105.7 kg
== END 2020-11-01 11:08 | disposition home or self-care (01) ==
LOC: ER 10:37
DX: M54.2 Cervicalgia (principal); M62.838 Other muscle spasm; F41.9 Anxiety disorder, unspecified; E78.5 Hyperlipidemia, unspecified; F32.9 Major depressive disorder, single episode, unspecified; Z87.442 Personal history of urinary calculi; Z98.84 Bariatric surgery status
CPT/HCPCS: 99282

== ENCOUNTER 2021-12-25 17:19 | Emergency (ER) | payer OTHER ==
[~2021-12-25] VITALS: Ht 160 cm; Wt 105.7 kg
[2021-12-25 18:28] LABS: BASOPHILS # (AUTO) 0.1 (0.0-0.1); BASOPHILS % 1.5 % (0.0-1.0); EOSINOPHILS # (AUTO) 0.2 (0.0-0.4); EOSINOPHILS % 2.8 % (0.0-6.0); HEMATOCRIT 39.7 % (34.2-44.1); HEMOGLOBIN 13.1 g/dL (12.0-16.0); LYMPHOCYTES # (AUTO) 3.6 (1.0-3.2); LYMPHOCYTES % 49.8 % (18.0-39.1); MEAN CORPUSCULAR HEMOGLOBIN 28.4 pg (28-32); MEAN CORPUSCULAR VOLUME 86.1 fL (81-99); MONOCYTES # (AUTO) 0.6 (0.2-0.8); MONOCYTES % 8.7 % (4.4-11.3); NEUTROPHILS # (AUTO) 2.7 (2.1-6.9); NEUTROPHILS % 37.1 % (38.7-80.0); PLATELET COUNT 420 x10e3/uL (140-360); RED BLOOD COUNT 4.61 x10e6/uL (3.6-5.1); RED CELL DISTRIBUTION WIDTH 15.8 % (11.7-14.4)
[2021-12-25 18:47] LABS: ALBUMIN 4.1 g/dL (3.5-5.0); ALBUMIN/GLOBULIN RATIO 1.3 (0.8-2.0); ANION GAP 16.6 mmol/L (8-16); CALCIUM 9.6 mg/dL (8.4-10.2); CREATININE, SERUM 0.72 mg/dL (0.57-1.11); POTASSIUM 3.6 mmol/L (3.5-5.1)
[2021-12-25 18:53] LABS: CREATINE KINASE MB 1.2 ng/mL (0-5.0)
[2021-12-25] MEDS ORDERED: ONDANSETRON HCL INJ 2MG/ML 2ML 2 MG/ML VIAL IV STA (19:34)
[2021-12-25] MEDS ORDERED: KETOROLAC TROMETHAMINE 30 MG/ML VIAL IV STA (19:34)
[2021-12-25 19:38] LABS: CLARITY,URINE CLEAR (CLEAR); COLOR,URINE YELLOW (YELLOW); KETONES,URINE NEGATIVE (NEGATIVE); LEUKOCYTE ESTERASE ,URINE NEGATIVE (NEGATIVE); NITRITE,URINE NEGATIVE (NEGATIVE); PROTEIN,URINE DIPSTICK NEGATIVE (NEGATIVE); RBC,URINE 0-5 /HPF (0-5); URINE UROBILINOGEN 0.2 mg/dL (0.2 - 1); WBC,URINE (MAN) 0-5 /HPF (0-5)
[2021-12-25 19:42] LABS: BACTERIA,URINE MODERATE /HPF; EPITHELIAL CELLS,URINE MANY /LPF; MUCUS,URINE FEW (RARE)
[2021-12-25] MEDS ORDERED: SODIUM CHLORIDE 0.9% 1000ML 1,000 ML IV ONE (19:45)
[2021-12-25] MEDS ORDERED: ACETAMIN/BUTALBITAL/CAFFEINE TAB PO ONE (19:45)
[2021-12-25] MEDS ORDERED: DIPHENHYDRAMINE HCL INJ 50 MG/ML VIAL IV ONE (19:45)
[2021-12-25 20:41] VITALS: BP 119/71
== END 2021-12-25 20:42 | disposition home or self-care (01) ==
LOC: ER 17:42
DX: G43.109 Migraine with aura, not intractable, without status migrainosus (principal); E78.5 Hyperlipidemia, unspecified; F41.9 Anxiety disorder, unspecified; Z20.822 Contact with and (suspected) exposure to COVID-19; Z87.442 Personal history of urinary calculi
CPT/HCPCS: 36415; 70450; 71045; 80053; 81001; 82550; 82553; 84484; 85025; 93005; 99284; J1200; J1885; J2405; J7030; U0002

== ENCOUNTER 2025-03-28 15:43 | Emergency (ER) | payer OTHER ==
[2025-03-28 16:23] LABS: BASOPHILS % 1.3 % (0.0-1.0); EOSINOPHILS % 2.6 % (0.0-6.0); LYMPHOCYTES % 37.4 % (18.0-39.1); MONOCYTES % 6.0 % (4.4-11.3); NEUTROPHILS % 52.4 % (38.7-80.0); RED CELL DISTRIBUTION WIDTH 13.9 % (11.7-14.4)
[2025-03-28] MEDS: SODIUM CHLORIDE 0.9% 1000ML 1,000 ML IV STA (16:43)
[2025-03-28 16:53] LABS: INR 0.94
[2025-03-28 17:11] LABS: EST GLOMERULAR FILTRATION RATE 105.0 ML/MIN (>=60)
[2025-03-28] MEDS ORDERED: SODIUM CHLORIDE 0.9% 1000ML 1,000 ML ONE (17:32)
[2025-03-28] MEDS: KETOROLAC TROMETHAMINE 30 MG/ML VIAL IV STA (18:33)
[2025-03-28] MEDS: DEXAMETHASONE SOD PHOS 10 MG/1 ML VIAL IV ONE (18:34)
[2025-03-28] MEDS: METOCLOPRAMIDE HCL 10 MG/2ML VIAL IV ONE (18:34)
[2025-03-28] MEDS: DIPHENHYDRAMINE HCL INJ 50 MG/ML VIAL IV ONE (18:34)
[2025-03-28] MEDS: ACETAMIN/BUTALBITAL/CAFFEINE TAB PO ONE (18:34)
[2025-03-28 19:30] VITALS: PULSE 74; RESP 18; TEMP 98.6; O2SAT 98
[2025-03-28 19:36] LABS: AMPHETAMINES SCREEN,URINE NEGATIVE (NEGATIVE); COCAINE SCREEN,URINE NEGATIVE (NEGATIVE); LEUKOCYTE ESTERASE ,URINE NEGATIVE (NEGATIVE); OPIATES SCREEN,URINE NEGATIVE (NEGATIVE); PROTEIN,URINE DIPSTICK NEGATIVE (NEGATIVE)
[2025-03-28 19:37] LABS: CANNABINOIDS SCREEN,URINE POSITIVE (NEGATIVE); METHADONE SCREEN, URINE NEGATIVE (NEGATIVE); URINE UROBILINOGEN 0.2 mg/dL (0.2 - 1)
[2025-03-28 19:53] LABS: EPITHELIAL CELLS,URINE RARE /LPF; WBC,URINE (MAN) 0-5 /HPF (0-5)
== END 2025-03-28 19:45 | disposition home or self-care (01) ==
LOC: ER 15:58
DX: G43.909 Migraine, unspecified, not intractable, without status migrainosus (principal); I10 Essential (primary) hypertension; J44.9 Chronic obstructive pulmonary disease, unspecified; F41.9 Anxiety disorder, unspecified; F32.A Depression, unspecified; Z86.73 Personal history of transient ischemic attack (TIA), and cerebral infarction without residual deficits; Z98.84 Bariatric surgery status; F17.210 Nicotine dependence, cigarettes, uncomplicated
CPT/HCPCS: 36415; 70450; 70496; 70498; 71045; 80053; 80307; 81001; 82550; 83735; 84484; 85025; 85610; 85730; 99284; J1100; J1200; J1885; J2765; J7030